=== PATIENT | male | born 1940 | race Caucasian/White ===

== ENCOUNTER → 2017-11-11 06:35 | Outpatient (CLI) | payer MEDICARE, BC, SELFPAY ==
[2017-11-11 07:17] LABS: AST(SGOT) 23 U/L (15-37); Alanine Aminotransfer ALT/SGPT 27 U/L (16-61); Albumin, Serum 3.5 g/dL (3.2-5.0); Alkaline Phosphatase 78 U/L (45-117); Bilirubin, Direct 0.19 mg/dL (0.00-0.30); Cholesterol 167 mg/dL (200); Globulin 3.4 g/dL (2.2-4.2); High Density Lipoprotein 68 mg/dL; Protein, Total 6.9 g/dL (6.4-8.2); Triglycerides 139 mg/dL; Very Low Density Lipoprotein 28 mg/dL (5-40)
== END ==
PROVIDERS: Family Provider Family Medicine; PCP Family Medicine; Referring Provider Internal Medicine Cardiovascular Disease; Visit Provider Internal Medicine Cardiovascular Disease
DX: I25.810 Atherosclerosis of coronary artery bypass graft(s) without angina pectoris (principal); Z95.1 Presence of aortocoronary bypass graft
CPT/HCPCS: 36415; 80061; 80076

== ENCOUNTER → 2017-11-14 06:38 | Outpatient (CLI) | payer MEDICARE, BC, SELFPAY ==
--- NOTE | 2017-11-14 15:27 | STRESSREP ---
Stress Test Report Exercise myocardial perfusion stress test. 77-year-old man with a history of coronary artery bypass surgery. Stress protocol: Resting EKG demonstrates sinus rhythm with a rate of 63 bpm normal intervals and noted resting blood pressure 168/80 6 cm of mercury. The patient exercised according to regular [place] protocol for total duration of 7 minutes and 26 seconds the maximum heart rate attained was 121 bpm. The patient completed 1 minute and 26 seconds into stage III of the Chapin protocol. The maximum workload attained was 9.1 metabolic equivalents at 84% of the maximum predicted heart rate. At rest there were no ST or T wave changes noted suggest ischemia. At peak exercise upsloping ST changes were noted with no meet the criteria for ischemia occasional premature ventricular complex was noted. During recovery there were subtle T wave inversions noted in the inferior lateral leads. No clinical angina was noted the resting blood pressure was 168/86 with a peak blood pressure 178/82. Myocardial perfusion protocol. 11.7 mCi of technetium 99m sestamibi was injected at rest. The patient exercised according to regular [facility] protocol for 7 minutes 26 seconds and at peak exercise 36.0 mCi of technetium 99m sestamibi was injected stress images were obtained stress and rest images were reconstructed and compared in the short axis vertical long horizontal long axis. Gated images were also obtained Perfusion SPECT analysis: Review of the stress images demonstrate normal uptake of tracer noted in all areas of the myocardium. The resting images similarly demonstrate normal uptake of tracer noted in all areas of the myocardium. No areas of reversibility are noted suggest ischemia. Gated SPECT analysis: The gated ejection fraction is noted to be 68%. Conclusion: Normal exercise myocardial perfusion stress test at a high workload. Preserved ejection fraction.
== END ==
PROVIDERS: Family Provider Family Medicine; PCP Family Medicine; Referring Provider Internal Medicine Cardiovascular Disease; Visit Provider Internal Medicine Cardiovascular Disease
DX: Z95.1 Presence of aortocoronary bypass graft (principal)
CPT/HCPCS: 78452; 93017; A9500; A4216

== ENCOUNTER → 2018-11-10 10:20 | Outpatient (CLI) | payer MEDICARE, BC, SELFPAY ==
[2018-11-10 09:54] VITALS: BMI 24.7
[2018-11-10 11:39] LABS: Absolute Lymphocyte Count 1.68 X10^3/uL (0.83-4.51); Absolute Neutrophil Count 4.1 X10^3/uL (2.0-7.7); Basophil# 0.06 X10^3/uL; Basophil% 0.9 % (0-1); Eosinophil# 0.21 X10^3/uL; Eosinophils% 3.1 % (0-5); Hematocrit 52.4 % (40-54); Hemoglobin 16.5 g/dL (13.0-16.5); Lymphocyte # 1.68 X10^3/ul (4.0); Lymphocyte % 24.7 % (19-41); Mean Corp Hgb Conc 31.5 g/dL (32-36); Mean Corpuscular Hgb 28.1 pg (27.0-32.0); Mean Corpuscular Volume 89.3 fL (80-94); Mean Platelet Vol. 10.2 fl (6.2-12.0); Monocyte# 0.71 X10^3/uL; Monocyte% 10.4 % (0-10); NRBC Flagged by Analyzer 0 % (0-5); Neutrophil # 4.13 X10^3/uL (2.7-7.7); Neutrophil % 60.6 % (47-70); Platelet Count 215 K/mm3 (150-450); RBC Distribution Width CV 13.6 % (11.6-14.6); RBC Distribution Width SD 44.6 fl (35.1-43.9); Red Blood Count 5.87 M/mm3 (4.6-6.2); White Blood Count 6.8 K/mm3 (4.4-11.0)
[2018-11-10 12:01] LABS: AST(SGOT) 23 U/L (15-37); Alanine Aminotransfer ALT/SGPT 24 U/L (16-61); Albumin, Serum 3.7 g/dL (3.2-5.0); Alkaline Phosphatase 102 U/L (45-117); Anion Gap 8 (5-15); BUN 14 mg/dL (7-18); BUN/Creat Ratio 16.1 RATIO (10-20); Bilirubin, Direct 0.18 mg/dL (0.00-0.30); Calcium,Total 9.3 mg/dL (8.5-10.1); Chloride 104 mmol/L (98-107); Cholesterol 139 mg/dL (200); Creatinine, Serum 0.87 mg/dL (0.70-1.30); EST Glomerular Filtration Rate 90 mL/min (>60); Est Glom Filt Rate - Afr Amer 109 mL/min (>60); Globulin 3.3 g/dL (2.2-4.2); Glucose 101 mg/dL (74-106); High Density Lipoprotein 70 mg/dL; Potassium 4.2 mmol/L (3.5-5.1); Sodium Level 144 mmol/L (136-145); Triglycerides 99 mg/dL; Very Low Density Lipoprotein 20 mg/dL (5-40)
== END ==
PROVIDERS: Family Provider Family Medicine; PCP Family Medicine; Referring Provider Internal Medicine Cardiovascular Disease; Visit Provider Internal Medicine Cardiovascular Disease
DX: E78.2 Mixed hyperlipidemia (principal); Z95.1 Presence of aortocoronary bypass graft
CPT/HCPCS: 36415; 80048; 80061; 80076; 85025

== ENCOUNTER 2018-11-28 13:48 | Inpatient (IN) | payer MEDICARE, BC, SELFPAY ==
[2018-11-10 09:54] VITALS: BMI 24.7
[2018-11-28] VITALS (23 sets, daily range): BP systolic 127–157; BP diastolic 58–75; PULSE 50–66; RESP 13–20; TEMP 36.6; O2SAT 93–99; BMI 25.4; BMI 23.6; BMI 23.7
--- NOTE | 2018-11-28 13:55 | EKG12_ITS ---
Test Reason : CP Blood Pressure : / mmHG Vent. Rate : 062 BPM Atrial Rate : 062 BPM P-R Int : 192 ms QRS Dur : 098 ms QT Int : 406 ms P-R-T Axes : 071 088 095 degrees QTc Int : 412 ms Normal sinus rhythm ST elevation consider inferior injury or acute infarct ACUTE ME / STEMI Consider right ventricular involvement in acute inferior infarct Abnormal ECG Confirmed by RUBEN MCKEON, JANINE ([id number]), acquisition editor MAURICIO HOFF ([id number]) on 12/04/2018 10:08:45 AM Referred By: Puma Walsh Confirmed By:JANINE MIRANDA MD
--- NOTE | 2018-11-28 13:55 | RAD_ITS ---
STUDY: X-RAY CHEST REASON FOR EXAM: Male, 78 years old. Chest pain TECHNIQUE: Single view of the chest was obtained COMPARISON: None. FINDINGS: No lung consolidation, pleural effusion or pneumothorax. Midline sternotomy wires. Eventration of the right hemidiaphragm. Flattening of the left hemidiaphragm also noted. Osseous structures demonstrate no acute abnormalities. IMPRESSION: No acute cardiopulmonary pathology seen. Electronically Signed: Boubacar Mcgee, at 14:09 EDT Tel , Service support , RAD/Chest 1 View (Portable)
--- NOTE | 2018-11-28 14:01 | ED.DCSUM_ITS ---
History of Present Illness Chief Complaint: Chest Pain Informant: Patient Onset: Days Context: Gradual Onset Timing: Intermittent Current Severity: Moderate Maximum Severity: Moderate Narrative: The patient presents to the emergency department with chest pain. Patient has a history of coronary vascular disease. He did have CABG in 1999. He then had stenting of 1 of his grafts in 2006. He is been having what sounds like stable angina for the past month. He did see Dr. byrd in the office. He was scheduled for an outpatient stress test. He states that today he was walking his dog. He states he began to have substernal heaviness that went into his arms and neck. He also felt mildly short of breath. He states the pain is better but is not resolved. He states this is feels similar to his prior MIs in the past. Prior similar symptoms: Yes Recent Illness/Hospitalization: No Past Medical History - Allergies and Home Meds Allergies/Adverse Reactions: Allergies No Known Allergies Allergy (Unverified 11/28/18 13:58) Primary Care Physician: Isma Haney III, MD [Primary Care Provider] - Prior records reviewed: Yes Past Medical History: - - Hypertension, hyperlipidemia, dementia Surgical History: coronary bypass surgery Lives: With Family Smoking Status: Former smoker Alcohol: None Drugs: None Review of Systems General: Denies: Chills, Fever, Sweats Eyes: Denies: Visual changes - bilaterally, Diplopia ENT: Denies: Rhinorrhea, Sore throat Cardiovascular: Reports: Chest pain. Denies: Palpitations Respiratory: Reports: Dyspnea. Denies: Cough, Dyspnea on exertion Gastrointestinal: Denies: Abdominal pain, Nausea, Vomiting, Diarrhea, Melena, Hematochezia Genitourinary: Denies: Dysuria, Hematuria, Frequency Musculoskeletal: Denies: Back pain, Extremity Pain Skin: Denies: Rash, Wounds Neurological: Denies: Headache, Weakness, Numbness Physical Exam Vital Signs/Narrative: Vital Signs Temp Pulse Resp BP Pulse Ox 11/28/18 13:53 14 156/68 H 11/28/18 13:49 97.8 F 66 16 156/58 H 94 Inital Vital Signs reviewed: Yes General: Well nourished, Well developed, No Acute Distress Head: Normocephalic, Atraumatic Eyes: Perrl, EOMI ENT: Moist mucous membranes, No rhinorrhea Neck: Supple, Nontender Cardiovascular: Regular rate, Regular rhythm, No murmurs Respiratory: No distress, CTA bilaterally, Chest nontender Abdomen: Soft, Nontender, Nondistended, Normal bowel sounds Back: Nontender, Normal Inspection Extremities: Nontender, No edema Skin: Normal color, No rash Neurological: Alert, Oriented x3, Cranial nerves II-XII grossly intact, Normal Strength, Normal Sensation Psychological: Normal affect, Normal Mood Diagnostic/Tx/Re-eval - EKG Initial EKG Interpretation: Sinus Rhythm, S-T Elevation, - - Rate of 62. Inferior ST elevation with lateral depression. Prior: Changed - Medical Decision Making EKG was obtained on patient arrival. It does demonstrate evidence of an acute inferior IL with lateral depression. STEMI team was activated. Patient was given Brilinta and heparin. I did discuss the patient with Dr. Walsh who is actually here evaluating the patient in the emergency department. The plan will be to take patient to the [facility] for definitive intervention. Impression 1. Acute inferior ST elevation myocardial infarction - Critical Care Time Critical care time (excluding procedures): 30-74 minutes ED Disposition - Plan for ED Patient: Referrals: Isma Haney III, MD [Primary Care Provider] -
[2018-11-28] MEDS: Aspirin 81 MG TAB.CHEW 324 MG PO (14:05)
[2018-11-28] MEDS: Heparin Injection (Vial) 5,000 UNIT/ML VIAL 4000 UNIT IV (14:06)
[2018-11-28] MEDS: TICAGRELOR 90 MG TABLET 180 MG PO (14:06)
[2018-11-28 14:17] LABS: Absolute Lymphocyte Count 1.89 X10^3/uL (0.83-4.51); Absolute Neutrophil Count 3.9 X10^3/uL (2.0-7.7); Basophil# 0.08 X10^3/uL; Basophil% 1.2 % (0-1); Eosinophil# 0.11 X10^3/uL; Eosinophils% 1.6 % (0-5); Hematocrit 49.4 % (40-54); Hemoglobin 15.8 g/dL (13.0-16.5); Lymphocyte # 1.89 X10^3/ul (4.0); Lymphocyte % 28.1 % (19-41); Mean Corpuscular Hgb 28.5 pg (27.0-32.0); Monocyte# 0.78 X10^3/uL; Monocyte% 11.6 % (0-10); NRBC Flagged by Analyzer 0 % (0-5); Neutrophil # 3.85 X10^3/uL (2.7-7.7); Neutrophil % 57.4 % (47-70); Platelet Count 222 K/mm3 (150-450); RBC Distribution Width CV 13.6 % (11.6-14.6); RBC Distribution Width SD 44.6 fl (35.1-43.9); Red Blood Count 5.55 M/mm3 (4.6-6.2); White Blood Count 6.7 K/mm3 (4.4-11.0)
--- NOTE | 2018-11-28 14:19 | CM.ED ---
Social Work Consult: Stemi-Alert Met with patient spouse, Trinity in room. Trinity voicing to be aware of current situation and plan. Trinity stating that patient has a diagnosis of Dementia but that patient still drives and does own care. Trinity stating to need to assist patient with high level brain thinking at times. Active listening and support provided. Assisted in escorting Trinity to waiting room. Cuauhtemoc Westbrook MSW, ESTRELLA
[2018-11-28 14:29] LABS: Anion Gap 4 (5-15); BUN 16 mg/dL (7-18); Calcium,Total 9.3 mg/dL (8.5-10.1); Chloride 104 mmol/L (98-107); EST Glomerular Filtration Rate 77 mL/min (>60); Est Glom Filt Rate - Afr Amer 93 mL/min (>60); Estimated Creatinine Clearance 56.92 ml/min; Glucose 129 mg/dL (74-106); Sodium Level 140 mmol/L (136-145)
[2018-11-28 14:37] LABS: International Normalized Ratio 1.1; Prothrombin Time (Protime)PT. 13.6 SECONDS (11.7-14.9)
[2018-11-28 14:38] LABS: Partial Thromboplast Time 29.5 Seconds (24.1-36.2)
--- NOTE | 2018-11-28 16:10 | NURSING ---
Report taken from laboratory clerk WILLIAM Berman.
--- NOTE | 2018-11-28 16:15 | EKG12_ITS ---
Test Reason : SSTEMI Blood Pressure : / mmHG Vent. Rate : 059 BPM Atrial Rate : 059 BPM P-R Int : 198 ms QRS Dur : 096 ms QT Int : 446 ms P-R-T Axes : 065 016 058 degrees QTc Int : 441 ms Sinus bradycardia Inferior infarct , possibly acute * ACUTE PR Consider right ventricular involvement in acute inferior infarct Abnormal ECG Confirmed by LALO MCKEON, ANA ([id number]), technical editor LAURA BUCHANAN ([id number]) on 12/09/2018 10:19:51 AM Referred By: Puma Walsh Confirmed By:ANA MAY MD
--- NOTE | 2018-11-28 16:25 | NURSING ---
Pt to ICU 1 w/WILLIAM Aden from cheesemaking lab[facility]. Groin site checked, benign, sheath intact. Bivalrudin running at 1.75 mg/kg/hr (25.9 ml/hr).
[2018-11-28] MEDS: 0.9% Normal Saline 1,000 ML 150 ML IV (16:30)
--- NOTE | 2018-11-28 17:04 | PCM.HP.STD ---
Problem List (1) Atherosclerotic heart disease of [place] coronary artery without angina pectoris Status: Chronic Qualifiers: [place] vs. transplanted heart: [place] heart Qualified Code(s): I25.10 - Atherosclerotic heart disease of [place] coronary artery without angina pectoris Comment: [id number]-[id number] Cx w/ 2.5 x 16 mm Taxus 11/27/2006 ; CABG x 3: SORENSON-LAD, SVG-RPDA and Left Radial Artery-Cx 11/22/1999 (2) History of coronary artery stent placement Status: Chronic Comment: [id number] Cx w/ 2.5 x 16 mm Taxus 11/27/2006 (3) Essential (primary) hypertension Status: Chronic (4) HLD (hyperlipidemia) Status: Chronic Qualifiers: Hyperlipidemia type: mixed hyperlipidemia Qualified Code(s): E78.2 - Mixed hyperlipidemia (5) STEMI (ST elevation myocardial infarction) Status: Acute Qualifiers: Involved coronary artery: unspecified coronary artery Qualified Code(s): I21.3 - ST elevation (STEMI) myocardial infarction of unspecified site History of Present Illness Date of Admission: 11/28/18 Chief Complaint: Chest pain - 1 day The patient is a 78 year old M with past medical history of CAD status post CABG in 1999, s/p left circumflex GRADY in 2006, hypertension, hyperlipidemia, dementia, who has been having stable angina recently, who comes in with complaints of chest pain, which started while is walking his dog, that radiated to his arms and neck. Associated was shortness of breath. EKG showed ST segment elevation in the inferior leads with lateral depression. A STEMI alert was called. And received heparin and Brilinta. He underwent emergent left heart cath. Findings included EF of 60%, severe inferior hypokinesis, 90% stenosis to the proximal LAD, 100% stenosis to mid LAD, previous stent in left circumflex artery had in-stent 30% restenosis, RCA was occluded, SORENSON graft to the LAD was patent, radial graft to the circumflex was totally occluded, known occlusion, saphenous vein graft to the right PDA was 99% occluded. He received a drug-eluting stent to the right PDA. Distal lesion of right PDA was unable to be stented, balloon angioplasty was done. Vitals in the ICU showed temperature of 90 7.9F, heart rate 52, blood pressure 134/75, respiratory rate of 16, SPO2 is 99% on room air. Admitting blood work was unremarkable. Troponin was 0.226. Past Medical History Past Medical History (Chronic Problems): Chronic Problems (Last Reviewed 11/10/18 @ 10:03 by Brian Samaniego MD) Atherosclerosis of coronary artery bypass graft without angina pectoris (Chronic) [id number]-TDK-Sbjs Cx w/ 2.5 x 16 mm Taxus 11/27/2006 ; CABG x 3: SORENSON-LAD, SVG-RPDA and Left Radial Artery-Cx 11/22/1999 Atherosclerotic heart disease of [place] coronary artery without angina pectoris (Chronic) [id number]-NRZ-Rmdj Cx w/ 2.5 x 16 mm Taxus 11/27/2006 ; CABG x 3: SORENSON-LAD, SVG-RPDA and Left Radial Artery-Cx 11/22/1999 History of coronary artery stent placement (Chronic 11/27/06) QOB-JFA-Uuox Cx w/ 2.5 x 16 mm Taxus 11/27/2006 Essential (primary) hypertension (Chronic) HLD (hyperlipidemia) (Chronic) Claudication (Chronic) Medical History: Medical History (Last Reviewed 11/10/18 @ 10:03 by Brian Samaniego MD) Atherosclerosis of coronary artery bypass graft without angina pectoris (Chronic) I25.810 YPX-NQC-Qdfx Cx w/ 2.5 x 16 mm Taxus 11/27/2006 ; CABG x 3: SORENSON-LAD, SVG-RPDA and Left Radial Artery-Cx 11/22/1999 Atherosclerotic heart disease of [place] coronary artery without angina pectoris (Chronic) I25.10 PMT-UBS-Iwmo Cx w/ 2.5 x 16 mm Taxus 11/27/2006 ; CABG x 3: SORENSON-LAD, SVG-RPDA and Left Radial Artery-Cx 11/22/1999 Essential (primary) hypertension (Chronic) I10 HLD (hyperlipidemia) (Chronic) E78.5 Claudication (Chronic) I73.9 Dementia F03.90 Hypothyroidism E03.9 Carotid bruit R09.89 Allergies No Known Allergies Allergy (Unverified 11/28/18 13:58) Home Medications: Ambulatory Orders Medication Instructions Recorded aspirin 81 mg tablet,delayed 81 mg PO ONCE tab 03/31/17 release donepezil 5 mg tablet 5 mg PO QDAY 03/31/17 levothyroxine 50 mcg capsule 50 mcg PO DAILY 11/06/17 atorvastatin 20 mg tablet 20 mg PO QDAY #90 tab 07/13/18 memantine 10 mg tablet 10 mg PO BID #180 tab 11/10/18 Surgical History: Surgical History (Last Reviewed 11/10/18 @ 10:03 by Brian Samaniego MD) H/O coronary artery bypass surgery (Resolved) Onset Date: 11/22/99 Z95.1 CABG x 3: SORENSON-LAD, SVG-RPDA and Left Radial Artery-Cx 11/22/1999 History of coronary artery stent placement (Chronic) Onset Date: 11/27/06 Z95.5 HGW-DUD-Jmuv Cx w/ 2.5 x 16 mm Taxus 11/27/2006 Surgical History: coronary bypass surgery, - - s/p coronary artery stent placement Psychiatric History: No pertinent psych hx Lives: With Family Smoking Status: Never smoker Alcohol: None Drugs: None - *Family History Maternal Family History: Family History (Last Reviewed 11/10/18 @ 10:03 by Brian Samaniego MD) Father Cancer Mother Arthritis History Items: - - arthritis Paternal Family History: Family History (Last Reviewed 11/10/18 @ 10:03 by Brian Samaniego MD) Father Cancer Mother Arthritis History Items: Cancer Review of Systems Constitutional: Denies: Anorexia, Chills, Fever, Night Sweats, Malaise, Weakness, Weight Change Eyes: Denies: Blurred vision, Cataracts, Conjunctivae Inflammation, Pain, Redness, Vision Change HEENT: Denies: Difficulty Hearing, Difficulty Swallowing, Head Aches, Hearing Changes, Sinus Congestion, Sinus Drainage Cardiovascular: Reports: Chest Pain, Light Headedness. Denies: Claudication, Chest Pressure, Orthopnea, Palpitations, Paroxysmal Noc. Dyspnea Respiratory: Denies: Cough, Hemoptysis, Shortness of breath at rest, Shortness of breath upon exertion, Sputum production Gastrointestinal: Denies: Abdominal Pain, Hematemesis, Hematochezia, Nausea, Vomiting Genitourinary: Denies: Dysuria Musculoskeletal: Denies: Joint Pain, Joint Tenderness Skin: Denies: Rash, Wounds Neurological: Denies: Numbness, Tingling, Focal weakness Psychiatric: Denies: Anxiety, Depression, Homicidal Ideations, Suicidal Ideations Hematologic/ Lymphatic: Denies: Easy Bruising, Easy Bleeding VTE Information - Inpt Only VTE Present on Admission: No VTE Pharm Prophylaxis ordered?: Yes Patient Problems: Active and Suspected Problems (Last Reviewed 11/10/18 @ 10:03 by Brian Samaniego MD) STEMI (ST elevation myocardial infarction) (Acute) - Physical Exam General: Alert, Oriented x3, Cooperative HEENT: Atraumatic, PERRLA, EOMI, Normocephalic Oral: Moist Mucosa Neck: Supple, Negative Carotid Bruits Lungs: Clear to auscultation, Normal air movement Cardiovascular: Regular rate, No murmurs Abdomen: Bowel Sounds Present, Soft, Non Tender Extremities: No edema, Capillary Refill Less than 3 Seconds Skin: No rashes, No breakdown Musculoskeletal: No Tenderness to Palpation of Joints or Extremities Neurological: Cranial nerves II-XII grossly intact Psych/Mental Status: Normal Affect, Appropriate Vital Signs Temp Pulse Resp BP Pulse Ox 97.8 F 57 L 20 H 157/74 H 94 11/28/18 13:49 11/28/18 14:07 11/28/18 14:07 11/28/18 14:07 11/28/18 14:07 Oxygen Flow Rate (L/min) 2 Oxygen Delivery Method Nasal Cannula Weight: 73.7 kg Body Mass Index (BMI) 25.4 Laboratory Tests Past 24 Hrs 11/28/18 11/28/18 11/28/18 13:56 13:56 13:56 WBC 6.7 RBC 5.55 Hgb 15.8 Hct 49.4 MCV 89.0 MCH 28.5 MCHC 32.0 RDW Std Deviation 44.6 H RDW Coeff of Jose G 13.6 Plt Count 222 MPV 10.0 Immature Gran % (Auto) 0.100 Neut % (Auto) 57.4 Lymph % (Auto) 28.1 [place] % (Auto) 11.6 H Eos % (Auto) 1.6 Baso % (Auto) 1.2 H Absolute Neuts (auto) 3.9 Absolute Lymphs (auto) 1.89 Nucleated RBC % 0 PT 13.6 INR 1.1 APTT 29.5 Sodium 140 Potassium 4.0 Chloride 104 Carbon Dioxide 32.0 Anion Gap 4 L BUN 16 Creatinine 1.00 Estim Creat Clear Calc 56.92 Est GFR (MDRD) Af Amer 93 Est GFR (MDRD) Non-Af 77 BUN/Creatinine Ratio 16.0 Glucose 129 H Calcium 9.3 Troponin I 0.226 H Assessment/Plan All Active Problems (Last Reviewed 11/10/18 @ 10:03 by Brian Samaniego MD) STEMI (ST elevation myocardial infarction) (Acute) H/O coronary artery bypass surgery (Resolved 11/22/99) 78 year old M with past medical history of CAD status post CABG in 2017, hypertension, hyperlipidemia, dementia, who has been having stable angina recently, who comes in with complaints of chest pain, which started while is walking his dog, that radiated to his arms and neck. 1. Acute inferior STEMI, AZEB score 5, Status post emergent cardiac cath with drug-eluting stent and PTCA to the proximal SVG graft to PDA History of CABG in 1999, history of GRADY in 2006 Admitted to ICU post cardiac cath We will follow post-cath orders, On aspirin, Brilinta, statins, metoprolol Lipid profile and HbA1c in a.m. 2. Hypertension, controlled, on metoprolol Will continue to monitor. 3. Hyperlipidemia, on statins, HbA1c in a.m. 4. Hypothyroidism, continue on Synthroid 5. Dementia -patient was on Aricept and Namenda at home We will hold these medications for now May resume meds if there is no bradycardia 6. DVT PPx- SCDs Code Visit Inpatient E&M: 39999 Init Hosp L3
--- NOTE | 2018-11-28 17:50 | NURSING ---
Bivalrudin GTT ended.
--- NOTE | 2018-11-28 21:56 | NURSING ---
2125 Right Femoral arterial sheath pulled by Vinny Tomas RN. Sterile procedure observed, this RN on standby for procedure. Manual pressure applied at 2125. Manual pressure released at 2155 and dressing applied. No complications noted.
[2018-11-28] MEDS: Atorvastatin Calcium 80 MG Tablet PO (23:22)
[2018-11-28] MEDS: TICAGRELOR 90 MG TABLET PO (23:23)
[2018-11-29] VITALS (20 sets, daily range): BP systolic 95–138; BP diastolic 55–75; PULSE 52–70; RESP 12–19; TEMP 36.7–36.9; O2SAT 94–100
[2018-11-29] MEDS: Acetaminophen 325 MG Tablet 650 MG PO (03:54)
[2018-11-29 04:10] LABS: Hematocrit 44.5 % (40-54); Hemoglobin 14.6 g/dL (13.0-16.5); Mean Corpuscular Hgb 28.9 pg (27.0-32.0); Mean Corpuscular Volume 88.1 fL (80-94); Red Blood Count 5.05 M/mm3 (4.6-6.2); White Blood Count 10.1 K/mm3 (4.4-11.0)
[2018-11-29 04:11] LABS: Mean Corp Hgb Conc 32.8 g/dL (32-36); Mean Platelet Vol. 10.1 fl (6.2-12.0); Platelet Count 174 K/mm3 (150-450); RBC Distribution Width CV 13.8 % (11.6-14.6); RBC Distribution Width SD 44.5 fl (35.1-43.9)
[2018-11-29 04:45] LABS: ALB/GLOB Ratio 1.1 RATIO (0.9-2.4); AST(SGOT) 74 U/L (15-37); Alanine Aminotransfer ALT/SGPT 26 U/L (16-61); Alkaline Phosphatase 76 U/L (45-117); Anion Gap 6 (5-15); BUN 12 mg/dL (7-18); BUN/Creat Ratio 17.2 RATIO (10-20); Calcium,Total 8.3 mg/dL (8.5-10.1); Chloride 108 mmol/L (98-107); Cholesterol 118 mg/dL (200); EST Glomerular Filtration Rate 116 mL/min (>60); Est Glom Filt Rate - Afr Amer 140 mL/min (>60); Estimated Creatinine Clearance 62.86 ml/min; Globulin 2.7 g/dL (2.2-4.2); Glucose 112 mg/dL (74-106); High Density Lipoprotein 61 mg/dL; Potassium 4.2 mmol/L (3.5-5.1); Protein, Total 5.7 g/dL (6.4-8.2); Sodium Level 139 mmol/L (136-145); Triglycerides 67 mg/dL; Very Low Density Lipoprotein 13 mg/dL (5-40)
[2018-11-29] MEDS: Levothyroxine 50 MCG Tablet PO (06:05)
[2018-11-29] MEDS: TICAGRELOR 90 MG TABLET PO ×2 (08:52→22:03)
[2018-11-29] MEDS: Aspirin E.C. 81 MG Tablet PO (08:52)
--- NOTE | 2018-11-29 09:13 | PCM.PN.CARD ---
Subjectve: No significant events overnight. Reports no chest pain or shortness of breath. Complains of some upper back pain, which is positional. Troponins are expectedly elevated. Objective: Vital Signs Temp Pulse Resp BP Pulse Ox 98.1 F 69 15 128/61 H 98 11/29/18 08:00 11/29/18 09:09 11/29/18 09:00 11/29/18 09:00 11/29/18 09:00 Oxygen Flow Rate (L/min) 2 Oxygen Delivery Method Room Air Weight: 74.6 kg Body Mass Index (BMI) 23.6 Intake and Output for Last 24 Hours 11/27/18 11/28/18 11/29/18 23:59 23:59 23:59 Intake Total 1000 / 1000 Output Total 1200 / 1900 1300 / 1300 Balance -200 / -900 -1300 / -1300 General: Awake, Alert, Oriented x 3 HEENT: PERRL, EOMI, Sclera Non Icteric Neck: Supple, Good ROM, No Lymph Node Enlargement Lungs: Clear to auscultation Cardiovascular: Regular Rhythm, Normal S1, Normal S2, No Murmurs, No Rubs, No Gallops Vascular: No Carotid Bruits, Normal Femoral Pulses, Normal Radial Pulses, Normal Dorsalis Pedal Pulse, Normal Posterior Tibial Pulses Abdomen: Bowel Sounds Present, Soft, Non Tender, No HSM, No Organomegaly Extremities: No Cyanosis, No Clubbing, No edema Neurological: No Focal Motor or Sensory Deficit 11/28/18 13:56: WBC 6.7, RBC 5.55, Hgb 15.8, Hct 49.4, MCV 89.0, MCH 28.5, MCHC 32.0, Plt Count 222, MPV 10.0, Immature Gran % (Auto) 0.100, Neut % (Auto) 57.4, Lymph % (Auto) 28.1, [place] % (Auto) 11.6 H, Eos % (Auto) 1.6, Baso % (Auto) 1.2 H, Absolute Neuts (auto) 3.9, Nucleated RBC % 0 11/28/18 13:56: PT 13.6, INR 1.1, APTT 29.5 11/28/18 13:56: Sodium 140, Potassium 4.0, Chloride 104, Carbon Dioxide 32.0, Anion Gap 4 L, BUN 16, Creatinine 1.00, Est GFR (MDRD) Af Amer 93, Est GFR (MDRD) Non-Af 77, BUN/Creatinine Ratio 16.0, Glucose 129 H, Calcium 9.3, Troponin I 0.226 H 11/28/18 18:05: Troponin I 4.490 H* 11/28/18 21:00: Troponin I 11.000 H* 11/29/18 00:15: Troponin I 14.500 H* 11/29/18 04:00: WBC 10.1, RBC 5.05, Hgb 14.6, Hct 44.5, MCV 88.1, MCH 28.9, MCHC 32.8, Plt Count 174, MPV 10.1 11/29/18 04:00: Sodium 139, Potassium 4.2, Chloride 108 H, Carbon Dioxide 25.0, Anion Gap 6, BUN 12, Creatinine 0.70, Est GFR (MDRD) Af Amer 140, Est GFR (MDRD) Non-Af 116, BUN/Creatinine Ratio 17.2, Glucose 112 H, Calcium 8.3 L, Total Bilirubin 0.90, Triglycerides 67, Cholesterol 118, LDL Cholesterol 44, VLDL Cholesterol 13, HDL Cholesterol 61 Rhythm: EKG: ECHO: Stress Test: Cardiac Cath: PCI: CT Surgery: Holter monitor: EPS: PPM: CXR: Chest CT Scan: Medical Necessity - Tobacco Use Smoking Status: Never smoker Assessment/Plan 1. Acute inferior ST elevation myocardial infarction, status post PCI to the proximal part of the SVG to PDA, balloon angioplasty of the distal segment of the SVG, technically complex, due to extensive fibrosis and angulation of the segment. The patient is doing well clinically. He is totally asymptomatic. Troponins are expectedly elevated. Continue guideline recommended medical therapy. Due to some bradycardia yesterday, would hold beta-blockers dose. Consider attempting intervention with stent placement to the distal SVG part versus continuation of ongoing medical management with antianginals. The patient may be transferred out from the ICU 2. Mild dementia. If no events, with anticipated discharge tomorrow after discussion with Dr. Samaniego, his primary iso coordinator. Code Visit Inpatient E&M: 89063 Subs Hosp L2
--- NOTE | 2018-11-29 09:59 | PCM.PN.HOSP ---
Patient Problems: Active and Suspected Problems (Last Reviewed 11/10/18 @ 10:03 by Brian Samaniego MD) STEMI (ST elevation myocardial infarction) (Acute) Subjective: Feeling much better, his chest pain has essentially resolved though he does have some residual soreness over his left chest. Also has some back pain which is likely due to the mattress. Vitals/I&O's: Vital Signs Temp Pulse Resp BP Pulse Ox 98.1 F 69 15 128/61 H 98 11/29/18 08:00 11/29/18 09:09 11/29/18 09:00 11/29/18 09:00 11/29/18 09:00 Oxygen Flow Rate (L/min) 2 Oxygen Delivery Method Room Air Weight: 164 lb 7.437 oz Body Mass Index (BMI) 23.6 Intake and Output for Last 24 Hours 11/27/18 11/28/18 11/29/18 23:59 23:59 23:59 Intake Total 1000 / 1000 Output Total 1200 / 1900 1300 / 1300 Balance -200 / -900 -1300 / -1300 General: Alert, Oriented x3, Cooperative, No apparent distress HEENT: Atraumatic, PERRLA, EOMI, Normocephalic Oral: Moist Mucosa Neck: Supple, No JVD Lungs: Clear to auscultation, Normal air movement, No rhonchi, No wheeze, No rales Cardiovascular: Regular rate, Regular Rhythm, Normal S1, Normal S2, No murmurs Abdomen: Soft, Non Tender, Non-Distended, No Hepato-splenomegaly Extremities: No edema, Capillary Refill Less than 3 Seconds Skin: No rashes, No breakdown, Incision - Cath site CDI Neurological: Neuro grossly intact, Sensory exam intact to light touch and pain Psych/Mental Status: Normal Affect, Appropriate Laboratory Results 11/28/18 13:56: WBC 6.7, RBC 5.55, Hgb 15.8, Hct 49.4, MCV 89.0, MCH 28.5, MCHC 32.0, RDW Std Deviation 44.6 H, RDW Coeff of Jose G 13.6, Plt Count 222, MPV 10.0, Immature Gran % (Auto) 0.100, Neut % (Auto) 57.4, Lymph % (Auto) 28.1, Door % (Auto) 11.6 H, Eos % (Auto) 1.6, Baso % (Auto) 1.2 H, Absolute Neuts (auto) 3.9, Absolute Lymphs (auto) 1.89, Nucleated RBC % 0 11/28/18 13:56: PT 13.6, INR 1.1, APTT 29.5 11/28/18 13:56: Sodium 140, Potassium 4.0, Chloride 104, Carbon Dioxide 32.0, Anion Gap 4 L, BUN 16, Creatinine 1.00, Estim Creat Clear Calc 56.92, Est GFR (MDRD) Af Amer 93, Est GFR (MDRD) Non-Af 77, BUN/Creatinine Ratio 16.0, Glucose 129 H, Calcium 9.3, Troponin I 0.226 H 11/28/18 18:05: Troponin I 4.490 H* 11/28/18 21:00: Troponin I 11.000 H* 11/29/18 00:15: Troponin I 14.500 H* 11/29/18 04:00: WBC 10.1, RBC 5.05, Hgb 14.6, Hct 44.5, MCV 88.1, MCH 28.9, MCHC 32.8, RDW Std Deviation 44.5 H, RDW Coeff of Jose G 13.8, Plt Count 174, MPV 10.1 11/29/18 04:00: Sodium 139, Potassium 4.2, Chloride 108 H, Carbon Dioxide 25.0, Anion Gap 6, BUN 12, Creatinine 0.70, Estim Creat Clear Calc 62.86, Est GFR (MDRD) Af Amer 140, Est GFR (MDRD) Non-Af 116, BUN/Creatinine Ratio 17.2, Glucose 112 H, Calcium 8.3 L, Total Bilirubin 0.90, AST 74 H, ALT 26, Alkaline Phosphatase 76, Total Protein 5.7 L, Albumin 3.0 L, Globulin 2.7, Albumin/Globulin Ratio 1.1, Triglycerides 67, Cholesterol 118, LDL Cholesterol 44, VLDL Cholesterol 13, HDL Cholesterol 61 Current Medications Acetaminophen (Tylenol) 650 mg PO Q6H PRN PRN PRN Reason: Pain Score 1-3/Temp > 100.7 F Last Admin: 11/29/18 03:54 Dose: 650 mg Documented by: Aspirin (Ecotrin) 81 mg PO DAILY@0800 [facility] Last Admin: 11/29/18 08:52 Dose: 81 mg Documented by: Atorvastatin Calcium (Lipitor) 80 mg PO QHS [facility] Last Admin: 11/28/18 23:22 Dose: 80 mg Documented by: Atropine Sulfate () 0.5 mg IV UD PRN PRN Reason: HR <50 bpm Sodium Chloride () 250 mls @ 15 mls/hr IV .[id number] PRN PRN Reason: Saline Flush Labetalol HCl (Trandate) 5 mg IV X1 PRN PRN Reason: SBP > 160 when pulling sheath Stop: 11/30/18 16:09 Levothyroxine Sodium (Synthroid) 50 mcg PO DAILY@0600 [facility] Last Admin: 11/29/18 06:05 Dose: 50 mcg Documented by: Metoprolol Tartrate (Lopressor (Beta Natalie)) 12.5 mg PO BID [facility] Last Admin: 11/29/18 09:09 Dose: Not Given Documented by: Ondansetron HCl (Zofran) 4 mg IV Q8H PRN PRN PRN Reason: NAUSEA/VOMITING Sodium Chloride () 500 ml IV BOLUS PRN PRN Reason: VASO-VAGAL PROTOCOL Sodium Chloride () 5 - 15 ml IV UD PRN PRN Reason: SALINE FLUSH Ticagrelor (Brilinta) 90 mg PO BID [facility] Last Admin: 11/29/18 08:52 Dose: 90 mg Documented by: STROKE Vital Signs/Narrative: Vital Signs Temp Pulse Resp BP Pulse Ox 11/29/18 09:09 69 11/29/18 09:00 64 15 128/61 H 98 11/29/18 08:00 98.1 F 52 L 17 108/75 99 11/29/18 07:37 54 L 11/29/18 07:00 52 L 17 127/61 H 97 11/29/18 06:51 97 11/29/18 06:00 53 L 17 120/75 95 Medical Necessity - Tobacco Use Smoking Status: Never smoker Assessment/Plan All Active Problems (Last Reviewed 11/10/18 @ 10:03 by Brian Samaniego MD) STEMI (ST elevation myocardial infarction) (Acute) H/O coronary artery bypass surgery (Resolved 11/22/99) 1. Acute inferior STEMI/HTN/HLD/CAD status post CABG 2017 -On admission his AZEB score was a 5, he had a GRADY placed to the proximal SVG graft to PDA -Appreciate cardiology assistance -Continue with aspirin, Brilinta, statins -Her rate has been slow today so we will hold his metoprolol -LDL is 44 2. Hypothyroidism -Stable -Continue with home Synthroid 3. Dementia -Mild, stable -Hold donepezil and memantine while bradycardic DVT: SCDs Code Visit Inpatient E&M: 26143 Subs Hosp L2
--- NOTE | 2018-11-29 10:00 | EKG12_ITS ---
Test Reason : AM Blood Pressure : / mmHG Vent. Rate : 056 BPM Atrial Rate : 056 BPM P-R Int : 182 ms QRS Dur : 088 ms QT Int : 412 ms P-R-T Axes : 066 -10 064 degrees QTc Int : 397 ms Sinus bradycardia Inferior infarct , age undetermined Nonspecific ST/T Wave Abnormality Abnormal ECG Confirmed by LALO MCKEON, ANA ([id number]), editor school photograph LAURA BUCHANAN ([id number]) on 12/09/2018 10:19:31 AM Referred By: Puma Walsh Confirmed By:ANA MAY MD
--- NOTE | 2018-11-29 11:11 | NURSING ---
Pt given all medication teaching as well as chest pain and PCI literature. Discussed w/ pt but d/t baseline dementia, will address with significant other or other family when they arrive.
--- NOTE | 2018-11-29 12:46 | NURSING ---
Pt's daughter, Mona Krishnan, voicing concerns at this time about pt's safety going home at discharge. Mona relays to this RN that pt's has been drinking and falling frequently and believes she is not fit to care for pt at home in addition to the pt's baseline dementia. This RN explained that social work would be contacted to talk about options going forward. Voicemail left with Lana Kimball and Maya Mcnulty regarding situation. Mona can be contacted at .
[2018-11-29] MEDS: Atorvastatin Calcium 80 MG Tablet PO (22:03)
[2018-11-29] MEDS: Metoprolol Tartrate 25 MG Tablet 12.5 MG PO (22:03)
[2018-11-30] VITALS (11 sets, daily range): BP systolic 97–130; BP diastolic 50–71; PULSE 52–71; RESP 18–22; TEMP 36.6–36.9; O2SAT 97–98
[2018-11-30] MEDS: Levothyroxine 50 MCG Tablet PO (06:02)
--- NOTE | 2018-11-30 07:39 | PN.CARD_ITS ---
Subjectve: Patient seen and evaluated and doing well. Objective: Vital Signs Temp Pulse Resp BP Pulse Ox 98.4 F 66 22 H 127/71 H 97 11/30/18 06:00 11/30/18 06:00 11/30/18 06:00 11/30/18 06:00 11/30/18 06:48 Oxygen Flow Rate (L/min) 2 Oxygen Delivery Method Room Air Weight: 164 lb 7.437 oz Body Mass Index (BMI) 23.6 Intake and Output for Last 24 Hours 11/28/18 11/29/18 11/30/18 23:59 23:59 23:59 Intake Total 1000 / 1000 300 / 300 Output Total 1200 / 1900 1300 / 1700 900 / 900 Balance -200 / -900 -1300 / -1700 -600 / -600 General: Awake, Alert, Oriented x 3 HEENT: PERRL, EOMI, Sclera Non Icteric Neck: Supple, Good ROM, No Lymph Node Enlargement Lungs: Clear to auscultation Cardiovascular: Regular Rhythm, Normal S1, Normal S2, No Murmurs, No Rubs, No Gallops Vascular: No Carotid Bruits, Normal Femoral Pulses, Normal Radial Pulses, Normal Dorsalis Pedal Pulse, Normal Posterior Tibial Pulses Abdomen: Bowel Sounds Present, Soft, Non Tender, No HSM, No Organomegaly Extremities: No Cyanosis, No Clubbing, No edema Musculoskeletal: No Erythema Skin: No Rashes Lymphatic: No Lymph Node Enlargement Neurological: No Focal Motor or Sensory Deficit Psych/Mental Status: Appropriate Rhythm: EKG: ECHO: Stress Test: Cardiac Cath: PCI: CT Surgery: Holter monitor: EPS: PPM: CXR: Chest CT Scan: Medical Necessity - Tobacco Use Smoking Status: Never smoker Assessment/Plan 1. Status post acute inferior wall myocardial infarction * The patient underwent angioplasty and stenting of the saphenous vein graft to the right coronary artery proximally and distally. Appears to be doing well at this time with no chest pain or shortness of breath * Plan is to continue the current medical therapy with no major changes. He does have residual disease noted in the [place] right coronary artery as well as the circumflex artery. * At this time I will prefer medical therapy and after he is seen in the office further recommendations will be made. * Plans will need to be made regarding his care due to his dementia. * Continue high intensity statin * Continue antiplatelet agents. * * Stable from the cardiovascular standpoint for outpatient discharge.
--- NOTE | 2018-11-30 08:25 | CRPHASE1_ITS ---
Patient Communication Former Patient:: Phase II PHII Cardiac Rehab Discussed with Patient:: Yes Guide to Cardiac Rehab Given to Patient:: Yes Cardiac Rehab Facility Choice List Given to Patient:: Yes Choice Program [facility] PHII:: Communication Given to CR, Refer to [facility] Choice Program Other:: Communication Given to CR, With permission faxed order and referral information Assistant Front Desk Manager:: Puma Walsh Refer Phase II Cardiac Rehab:: Yes Sessions:: 36 sessions - 3 days/wk, 12 weeks Risk Factors/Lifestyle Smoking Status: Never smoker Hx Hypertension: Yes - ESSENTIAL Hx Diabetes Mellitus Type 1: No Hx Diabetes Mellitus Type 2: No Hx Metabolic Disorders: No Hx Dyslipidemia: Yes Hx Obesity: No Height: 5 ft 7 in - BMI 23.6 Stress: Home/Family Risk Factor for Sedentary Lifestyle: Moderate Risk Family History: Family History (Last Reviewed 11/10/18 @ 10:03 by Brian Samaniego MD) Father Cancer Mother Arthritis Family History: Dementia, Heart Disease, Hypertension Past Cardiac Illness: Coronary Artery Disease, Previous PCI w/Stent, Coronary Artery Bypass Graft Laboratory Values: Cardiac Rehab Phase I Labs Triglycerides 67 mg/dL (-199) 11/29/18 04:00 Cholesterol 118 mg/dL (200) 11/29/18 04:00 LDL Cholesterol 44 mg/dL (0-130) 11/29/18 04:00 HDL Cholesterol 61 mg/dL (40-) 11/29/18 04:00 Phase I Education Given On:: [place], Nutrition, Antiplatelet medication Issues Affecting Care:: None Knowledge of Condition:: Yes Learning Preferences: Verbal, Written Hospital Course Presenting Symptoms:: STEMI Medical/Surgical History OK:: Yes - STEMI CAD:: Yes Cardiomyopathy:: No Pulmonary:: No Diabetes:: No Hypertension:: Yes - ESSENTIAL Dyslipidemia:: Yes Thyroid:: Yes - HYPOTHYROIDISM Depression:: No CABG: Yes PTCA:: Yes - CABG 1999, PCI 2006 Discharge/Home/Social Eval Discharge Disposition: Home Cardiac Rehabilitation Info Cardiac Rehabilitation Program Information: Cardiac Rehabilitation is important for patients like you who are recovering from a heart problem. Cardiac rehabilitation programs are recognized as integral to the continued care of the patient with coronary heart disease. The cardiac rehabilitation program is designed to optimize a patient's physical, psychological, and social functioning. Health hospice care sales consultant work in cardiac rehabilitation programs and assist you with getting the treatments you need to get stronger and healthier - like exercise, healthy eating habits, and medications. Cardiac rehabilitation has been show to help people with heart problems live longer and have better life enjoyment than people who do not go to cardiac rehabilitation. Please contact the Cardiac Rehabilitation Program at [facility] at in two weeks if you have not heard from them.
--- NOTE | 2018-11-30 08:29 | CRPH1.INSTRU ---
General Education CAD and cardiac anatomy and function:: Patient communicates acknowledgment Explanation of diagnoses and procedures:: Patient communicates acknowledgment Sign/Symptoms of DE:: Patient communicates acknowledgment Antiplatelet therapy: Patient communicates acknowledgment Proper use of NTG-SL: Not instructed Emergency procedures and activation of EMS: Patient communicates acknowledgment Compliance of all prescribed medications: Patient communicates acknowledgment Smoking Patient Nicotine/Smoking Risk Factors Are:: Never smoked Dyslipidemia Patient Dyslipidemia Risk Factors Are:: Total Cholesterol, Triglycerides, HDL, LDL Recommendations Include:: Lipid profile provided, Reviewed NCEP/ATP guidelines, Therapeutic Lifestyle Change dietary guidelines Dyslipidemia Response Code:: Patient communicates acknowledgment Overweight/Obesity Patient Overweight/Obesity Risk Factors Are:: BMI Normal [24-29 & > 65 years old] Hypertension Recommendations Include:: Maintain BP <130/85, DASH dietary guidelines, Decrease/maintain normal body weight, Moderation of ETOH Hypertension:: Patient communicates acknowledgment Heart Disease Patient Heart Disease Risk Factors Are:: Previous cardiac event Heart Disease Response Code:: Patient communicates acknowledgment Diabetes Patient Diabetes Risk Factors Are:: No documented hx of diabetes Metabolic Syndrome Recommendations Include:: Does not meet criteria Sedentary Patient Sedentary Risk Factors Are:: Lack of regular exercise Recommendations Include:: Aerobic exercise 5-7 times/week for 20-30 minutes continuously, Benefits of regular exercise, Discussed home walking program, Monitored Outpatient Cardiac Rehab Sedentary Response Code:: Patient communicates acknowledgment Stress Recommendations Include:: Identification of stressors, and assessment of coping skills, Stress management techniques Stress Response Code:: Patient communicates acknowledgment
[2018-11-30] MEDS: Metoprolol Tartrate 25 MG Tablet 12.5 MG PO (08:41)
[2018-11-30] MEDS: Aspirin E.C. 81 MG Tablet PO (08:41)
[2018-11-30] MEDS: TICAGRELOR 90 MG TABLET PO (08:43)
--- NOTE | 2018-11-30 10:00 | EKG12_ITS ---
Test Reason : MORNING EKG Blood Pressure : / mmHG Vent. Rate : 060 BPM Atrial Rate : 060 BPM P-R Int : 186 ms QRS Dur : 094 ms QT Int : 436 ms P-R-T Axes : 058 -16 -44 degrees QTc Int : 436 ms Normal sinus rhythm Inferior infarct , age undetermined Abnormal ECG Confirmed by LALO MCKEON, ANA ([id number]), assignment editor LAURA BUCHANAN ([id number]) on 12/09/2018 10:19:10 AM Referred By: Puma Walsh Confirmed By:ANA MAY MD
--- NOTE | 2018-11-30 10:40 | DCINST_ITS ---
- Discharge Diagnoses Current Active Problems: Current Active and Chronic Problems (Last Reviewed 11/10/18 @ 10:03 by Brian Samaniego MD) STEMI (ST elevation myocardial infarction) (Acute) You will use the following diet at home:: Cardiac Discharge Activity: Return to Normal Activity Allergies/Adverse Reactions: Allergies No Known Allergies Allergy (Unverified 11/28/18 13:58) Medications to take at Discharge donepezil 5 mg tablet 5 mg PO QDAY 03/31/17 levothyroxine 50 mcg capsule 50 mcg PO DAILY 11/06/17 memantine 10 mg tablet 10 mg PO BID #180 tab 11/10/18 Aspirin E.C. [Ecotrin] 81 mg PO DAILY@0800 #90 tab 11/30/18 Atorvastatin Calcium [Lipitor] 40 mg PO QHS #90 tab 11/30/18 Metoprolol Tartrate [Lopressor (beta marialuisa)] 12.5 mg PO BID #90 tab 11/30/18 Ticagrelor [Brilinta] 90 mg PO BID #180 tab 11/30/18 The following prescriptions were given: Ticagrelor [Brilinta] 90 mg PO BID #180 tab Transmission Status: Received by [id number] Aspirin E.C. [Ecotrin] 81 mg PO DAILY@0800 #90 tab Transmission Status: Received by [id number] Atorvastatin Calcium [Lipitor] 40 mg PO QHS #90 tab Transmission Status: Received by [id number] Metoprolol Tartrate [Lopressor (beta marialuisa)] 12.5 mg PO BID #90 tab Transmission Status: Received by [id number] Primary Care Physician: Isma Haney III, MD [Primary Care Provider] - Please follow up with your Primary Care Physician in: in 5-7 days Test Results: Test results from this visit will be discussed in further detail at your follow- up appointment, if applicable. Please Follow Up With: Brian Samaniego MD When: as scheduled Proposed Discharge Date: 11/30/18
--- NOTE | 2018-11-30 10:42 | PCM.DC.SUM ---
Discharge Date and Diagnosis - Problem List Patient Problems: Active and Suspected Problems (Last Reviewed 11/10/18 @ 10:03 by Brian Samaniego MD) STEMI (ST elevation myocardial infarction) (Acute) Date of Admission: 11/28/18 Date of Discharge: 11/30/18 - Primary Discharge Diagnosis Active and Suspected Problems (Last Reviewed 11/10/18 @ 10:03 by Brian Samaniego MD) STEMI (ST elevation myocardial infarction) (Acute) - Secondary Discharge Diagnosis Chronic Problems (Last Reviewed 11/10/18 @ 10:03 by Brian Samaniego MD) Atherosclerosis of coronary artery bypass graft without angina pectoris (Chronic) [id number] Cx w/ 2.5 x 16 mm Taxus 11/27/2006 ; CABG x 3: SORENSON-LAD, SVG-RPDA and Left Radial Artery-Cx 11/22/1999 Atherosclerotic heart disease of [place] coronary artery without angina pectoris (Chronic) [id number] Cx w/ 2.5 x 16 mm Taxus 11/27/2006 ; CABG x 3: SORENSON-LAD, SVG-RPDA and Left Radial Artery-Cx 11/22/1999 History of coronary artery stent placement (Chronic 11/27/06) [id number] Cx w/ 2.5 x 16 mm Taxus 11/27/2006 Essential (primary) hypertension (Chronic) HLD (hyperlipidemia) (Chronic) Claudication (Chronic) Hospital Course and Treatment Imaging Results: Clinical Impression(s) from Imaging Studies Chest X-Ray 11/28/18 13:55 Summary of Care Provided: The patient is a 78 year old M admitted with chest pain. An assessment of acute ST segment elevation NH involving the inferior wall was made. Patient to drip per protocol. Underwent left heart catheterization with angioplasty and stenting of the saphenous vein graft to the right coronary artery proximally and distally. Subsequently monitored in the ICU where patient did remain stable. Hypothyroidism ~patient is on levothyroxine home dose continued Dyslipidemia ~patient is on statin therapy, continued Hypertension ~ blood pressure controlled, home medications continued with dose adjustment as needed Dementia ?On Aricept and Namenda resumed on discharge Patient Problems: Active and Suspected Problems (Last Reviewed 11/10/18 @ 10:03 by Brian Samaniego MD) STEMI (ST elevation myocardial infarction) (Acute) Objective: GENERAL: cooperative HEENT: Atraumatic; EYES; Anicteric, NECK; supple, normal thyroid, RESPIRATORY: Diminished to auscultation CARDIOVASCULAR: Regular S1 S2, GI: soft, non-tender, normoactive bowel sounds, : No Renal angle tenderness; NEURO: Awake; no lateralizing signs. SKIN: No Rash PSYCH; Normal affect - Physical Exam Vital Signs Temp Pulse Resp BP Pulse Ox 98.4 F 64 20 H 102/66 97 11/30/18 06:00 11/30/18 10:00 11/30/18 10:00 11/30/18 10:00 11/30/18 10:00 Oxygen Flow Rate (L/min) 2 Oxygen Delivery Method Room Air Weight: 74.6 kg Body Mass Index (BMI) 23.6 Intake and Output for Last 24 Hours 11/28/18 11/29/18 11/30/18 23:59 23:59 23:59 Intake Total 1000 / 1000 300 / 300 Output Total 1200 / 1900 1300 / 1700 900 / 900 Balance -200 / -900 -1300 / -1700 -600 / -600 Discharge Diet: Low fat/ Low Cholesterol Discharge Activity: Return to Normal Activity Home Medications: Medications to take at Discharge donepezil 5 mg tablet 5 mg PO QDAY 03/31/17 levothyroxine 50 mcg capsule 50 mcg PO DAILY 11/06/17 memantine 10 mg tablet 10 mg PO BID #180 tab 11/10/18 Aspirin E.C. [Ecotrin] 81 mg PO DAILY@0800 #90 tab 11/30/18 Atorvastatin Calcium [Lipitor] 40 mg PO QHS #90 tab 11/30/18 Metoprolol Tartrate [Lopressor (beta natalie)] 12.5 mg PO BID #90 tab 11/30/18 Ticagrelor [Brilinta] 90 mg PO BID #180 tab 11/30/18 Following Prescrptions Were Given to Patient: Ticagrelor [Brilinta] 90 mg PO BID #180 tab Transmission Status: [id number] Aspirin E.C. [Ecotrin] 81 mg PO DAILY@0800 #90 tab Transmission Status: [id number] Atorvastatin Calcium [Lipitor] 40 mg PO QHS #90 tab Transmission Status: Re[id number] Metoprolol Tartrate [Lopressor (beta natalie)] 12.5 mg PO BID #90 tab Transmission Status: Re[id number] Primary Care Physician: Isma Haney III, MD [Primary Care Provider] - Please follow up with your Primary Care Physician in: in 5-7 days Please Follow Up With: Brian Samaniego MD When: as scheduled Disposition: Home Minutes spent on discharge:: 35 Patient Condition:: Stable Medical Necessity - Tobacco Use Smoking Status: Never smoker Meaningful Use Info Meaningful Use Diagnoses (Choose all that apply): AMI - AMI Aspirin given w/in 24hrs of arrival?: Yes ASA at discharge?: Yes Statins at discharge?: Yes William/ARB at discharge?: No Reason William/ARB not ordered:: Not indicated Beta Natalie at discharge?: Yes Done w/ Acute NH measure.: Yes Documented LVEF (%): 60 Code Visit Inpatient E&M: 53998 Disch Hosp
--- NOTE | 2018-11-30 11:42 | CASEMGMT ---
Social Work Consult: Patient daughter, Mona concerned with patient returning to home due to patient spouse, Trinity drinking and falling. Informant: AUT[employer] BODY MECHANIC. Met with patient and patient spouse in room. Trinity voicing that main concern with returning to home is how often Trinity falls. This social media intern inquiring about medical alert system for Trinity and patient. Trinity stating to not have one in place but to be interested. This social media intern providing Trinity with list of medical alert systems. Trinity thanking this social media intern. Telephone call to Mona [phone]. Mona stating to also be concerned about how often Trinity falls in the home. This social media intern updating Trinity that a list of medical alert systems was provided and it is encouraged that patient and Trinity establish a medical alert system. Mona stating to also have plans to set up an aide in the home and that Trinity is now open to this. Mona making no concerns about Trinity drinking and is stating to be fine with patient returning to home. Mona provided with resources if needed. Mona thanking this social media intern. PLAN: Discharge to home with spouse. Cu[place] PRAKASH, ESTRELLA
--- NOTE | 2018-11-30 11:55 | CASEMGMT ---
RN CM Assessment Presentation: STEMI Intro role of CM and purpose of RN CM assessment to patient's . Demographics, PCP and Pharmacy verified. Pt's plans to take pt home and will be able to provide transportation home. Pt has hx of dementia; is home care and home health aides teacher. See note for details. PCP: Dr. Isma Haney III Specialists: Dr. Samaniego [facility], [place] Prescription Benefit: yes. [place] savings card given and explained to . She will have pharmacy give her copay amounts for further refills. If cost prohibitive- will contact cardiology office. LNOK: Trinity Living Arrangements: Lives with @ home. assists with any care needs. Transportation: drives Patient DC goals: DC PLAN: Home with . Harry WISE RN ACM
== END 2018-11-30 14:25 | disposition home or self-care (01) | DRG 247 ==
LOC: ED 13:59 → ICU 14:17
PROVIDERS: Admitting Provider Internal Medicine; Emergency Provider Emergency Medicine; Family Provider Family Medicine; PCP Family Medicine; Referring Provider Internal Medicine Cardiovascular Disease; Visit Provider Internal Medicine
DX: I21.19 ST elevation (STEMI) myocardial infarction involving other coronary artery of inferior wall (principal); I25.810 Atherosclerosis of coronary artery bypass graft(s) without angina pectoris; T82.855A Stenosis of coronary artery stent, initial encounter; Y93.K1 Activity, walking an animal; E03.9 Hypothyroidism, unspecified; F03.90 Unspecified dementia, unspecified severity, without behavioral disturbance, psychotic disturbance, mood disturbance, and anxiety; Z95.1 Presence of aortocoronary bypass graft
CPT/HCPCS: 71045; 80048; 80053; 80061; 84484; 85025; 85027; 85610; 85730; 92941; 93005; 93458; 97162; 97166; 97802; 99152; 99153; 99285; J7030; Q9967; A4216; C1725; C1769; C1874; C1887; C9606; J0583

== ENCOUNTER → 2019-10-06 15:00 | Outpatient (REF) | payer MEDICARE, BC, SELFPAY ==
[2019-02-23 10:20] VITALS: BMI 24.5
[2019-10-07 08:15] LABS: Color, Urine Yellow (Yellow); Glucose, Dipstick Normal (Normal); Ketone-Dipstick 5 mg/dl (Negative); Leukocyte Esterase-Dipstick 25 /ul (Negative); Nitrite-Dipstick Negative (Negative); Occult Blood-Urine Negative /ul (Negative); Protein-Dipstick Negative (Negative); Specific Gravity, Urine 1.015 (1.002-1.030); Urine Bilirubin Dipstick Negative (Negative); Urine Clarity Clear (Clear); Urine Urobilinogen Normal (Normal)
== END ==
LOC: OLS.BROOKB 15:00
PROVIDERS: PCP Family Medicine; Referring Provider Family Medicine; Visit Provider Family Medicine
DX: N39.0 Urinary tract infection, site not specified (principal)
CPT/HCPCS: 81002; 87086

== ENCOUNTER → 2020-03-14 05:00 | Outpatient (REF) | payer MEDICARE, BC, SELFPAY ==
[2019-02-23 10:20] VITALS: BMI 24.5
[2020-03-14 08:08] LABS: Hematocrit 43.7 % (40-54); Hemoglobin 13.7 g/dL (13.0-16.5); Mean Corp Hgb Conc 31.4 g/dL (32-36); Mean Corpuscular Hgb 28.9 pg (27.0-32.0); Mean Corpuscular Volume 92.2 fL (80-94); Platelet Count 209 K/mm3 (150-450); RBC Distribution Width CV 13.9 % (11.6-14.6); RBC Distribution Width SD 47.5 fl (35.1-43.9); Red Blood Count 4.74 M/mm3 (4.6-6.2); White Blood Count 8.2 K/mm3 (4.4-11.0)
[2020-03-14 08:38] LABS: ALB/GLOB Ratio 1.1 RATIO (0.9-2.4); AST(SGOT) 24 U/L (15-37); Alanine Aminotransfer ALT/SGPT 32 U/L (16-61); Albumin, Serum 3.6 g/dL (3.2-5.0); Alkaline Phosphatase 114 U/L (45-117); Anion Gap 2 (5-15); BUN 24 mg/dL (7-18); BUN/Creat Ratio 26.8 RATIO (10-20); Chloride 107 mmol/L (98-107); Creatinine, Serum 0.89 mg/dL (0.70-1.30); EST Glomerular Filtration Rate 87 mL/min (>60); Est Glom Filt Rate - Afr Amer 105 mL/min (>60); Globulin 3.4 g/dL (2.2-4.2); Glucose 110 mg/dL (74-106); Potassium 3.9 mmol/L (3.5-5.1); Sodium Level 141 mmol/L (136-145); Thyroid Stim Hormone (TSH) 1.18 uIU/mL (0.358-3.74)
== END ==
LOC: OLS.BROOKB 05:00
PROVIDERS: PCP Family Medicine; Referring Provider Family Medicine; Visit Provider Family Medicine
DX: R53.83 Other fatigue (principal); E03.9 Hypothyroidism, unspecified
CPT/HCPCS: 36415; 80053; 84443; 85027

== ENCOUNTER 2020-06-15 18:54 | Emergency (ER) | payer MEDICARE, BC, SELFPAY ==
[2019-02-23 10:20] VITALS: BMI 24.5
[2020-06-15 18:55] VITALS: BP 166/84; PULSE 82; RESP 16; TEMP 36.8; O2SAT 94; BMI 22.4
--- NOTE | 2020-06-15 19:25 | RAD_ITS ---
STUDY: X-RAY - PELVIS AND BILATERAL HIPS REASON FOR EXAM: Male, 80 years old. fall/pain TECHNIQUE: AP view of the pelvis.? 2 views of the right hip, and 2 views of the left hip were obtained. COMPARISON: None. FINDINGS: There is a non-specific bowel gas pattern. Normal visualized soft tissue structures. Normal bilateral iliac wings, sacroiliac joints and visualized sacrum. Normal bilateral superior and inferior pubic rami. Normal pubic symphysis. Normal bilateral ischial tuberosities. Normal visualized right femoral head. Normal right acetabulum. There is mild articular joint space narrowing of the right hip. Normal visualized left femoral head. Normal left acetabulum. There is mild articular joint space narrowing of the left hip. RAD/Hips B/L min 2 views w/ Pelvis IMPRESSION: Negative for fracture or dislocation. 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 Electronically Signed: Shital Clifton MD at 20:04 EDT , Service support ,
--- NOTE | 2020-06-15 19:38 | ED.VIS.FALL ---
HPI HPI - Fall History of Present Illness Chief Complaint: Fall Informant: patient, EMS and SNF Limited: dementia Occured/Mechanism Occurred: Today Mechanism/Context: Yes Same level fall Usually ambulates: Walker Pain/Injury Pain Location: none Narrative Narrative: The patient is an 80-year-old male with medical history significant for dementia who presents after a fall. The patient was in his normal state of health. He has rather significant dementia and is comfort care only. He had a fall today and would stand, but would not bear weight. The senior care reports that the right hip pain, but the patient states that it is his left hip that is hurting. He cannot recall the events of the fall. He states he is otherwise been in his normal state of health. PFSH [facility] Medical History Atherosclerosis of coronary artery bypass graft without angina pectoris Atherosclerotic heart disease of [place] coronary artery without angina pectoris Carotid bruit Claudication Dementia Essential (primary) hypertension HLD (hyperlipidemia) Hypothyroidism Home Medications donepezil 5 mg tablet 5 mg PO QDAY 03/31/17 [History Last Taken Unknown] levothyroxine 50 mcg capsule 50 mcg PO DAILY 11/06/17 [History Last Taken Unknown] memantine 10 mg tablet 10 mg PO BID #180 tab 11/10/18 [History Last Taken Unknown] aspirin 81 mg PO DAILY@0800 #90 tab 11/30/18 [Rx Last Taken Unknown] atorvastatin 40 mg PO QHS #90 tab 11/30/18 [Rx Last Taken Unknown] metoprolol tartrate 12.5 mg PO BID #90 tab 11/30/18 [Rx Last Taken Unknown] ticagrelor 90 mg PO BID #180 tab 11/30/18 [Rx Last Taken Unknown] Allergy/AdvReac Type Severity Reaction Status Date / Time cephalexin Allergy PT UNABLE Verified 06/15/20 18:58 TO RESPOND-NEEDS F/U Family History Father Cancer Lung Cancer Mother Arthritis Surgical History H/O coronary artery bypass surgery (11/22/99) History of coronary artery stent placement (11/28/18) Social History Smoking Status: Never smoker alcohol intake: former substance use type: does not use caffeine: Yes Type: coffee what type of physical activity do you participate in: other frequency: 1-2 times per week duration: 15-30 minutes/day seatbelt use: always do you feel safe at home: Yes ROS ROS ED Review of Systems ROS Unobtainable: due to mental condition and due to mental status EXAM Physical Exam Const Vital Signs: 06/15/20 18:55 06/15/20 18:59 Temperature 98.3 F Temperature Source Oral Pulse Rate 82 Respiratory Rate 16 Respiratory Pattern Normal Blood Pressure 166/84 H Blood Pressure Mean 111 Pulse Ox 94 Oxygen Delivery Method Room Air Positive well nourished and well developed General Appearance ED: well developed HEENT Reports normocephalic, head/scalp atraumatic and moist mucous membranes Eyes PERRL and EOMs intact bilaterally Neck no lymphadenopathy and supple General: Negative for tenderness Chest Wall inspection of chest normal Resp normal respiratory effort and clear to auscultation bilaterally Cardio regular rate, regular rhythm and no murmurs GI normal to inspection, nondistended, normoactive bowel sounds Palpation: Negative for tender, guarding or rebound tenderness present Back/Spine no CVA tenderness Cervical Spine: Negative for cervical spine tenderness Thoracic Spine / Upper Back: Negative for thoracic spinal tenderness Extremity normal to inspection General Extremety ED: Negative for tenderness Neuro oriented x3 and CN's II-XII intact bilaterally Neuro Narrative: No focal deficits appreciated. Sensorium / Orientation: alert Psych mental status grossly normal Skin no rashes or lesions noted, no wounds and skin turgor normal MDM MDM MDM Narrative Medical decision making narrative: The patient is an 80-year-old male presents with hip pain after an unwitnessed fall. He does have rather severe dementia and I cannot obtain much history from him. He did seem to grimace with palpation of the left hip. He had no pain with logroll. I was able to extend the hip and he had very minimal pain. His pulses were normal. I obtain plain films of bilateral hip and pelvis. There was no evidence of acute fracture. The patient is resting comfortably and sleeping without issue. At this point, I do feel that he is safe for discharge back to his facility. I did discuss this with the patient's son and daughter. They are comfortable with this plan of care. Impression 1. Mechanical fall Radiography Diagnostic Testing: Radiology Impression Hip/Pelvis X-Ray 06/15/20 19:25 IMPRESSION: Negative for fracture or dislocation. 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 Electronically Signed: Shital Clifton MD at 20:04 EDT , Service support , Discharge Plan Triage Chief Complaint: Fall ED Provider: Valdemar Connolly Dx/Rx/DC Orders Instructions: ED Mechanical Fall Prescriptions: No Action donepezil 5 mg tablet 5 mg PO QDAY RF: 0 levothyroxine 50 mcg capsule 50 mcg capsule 50 mcg PO DAILY RF: 0 memantine 10 mg tablet 10 mg PO BID Qty: 180 RF: 0 aspirin 81 MG tablet 81 mg PO DAILY@0800 Qty: 90 RF: 0 metoprolol tartrate 25 MG tablet 12.5 mg PO BID Qty: 90 RF: 0 ticagrelor 90 MG tablet 90 mg PO BID Qty: 180 RF: 3 atorvastatin 40 MG tablet 40 mg PO QHS Qty: 90 RF: 0 Primary Care Provider: Isma Haney III Referrals: Isma Haney III, MD [Primary Care Provider] -
[2020-06-16 01:42] VITALS: BP 166/80; PULSE 81; RESP 18; O2SAT 95
== END 2020-06-16 01:58 | disposition skilled nursing facility (03) ==
LOC: ED 19:54
PROVIDERS: Emergency Provider Emergency Medicine; PCP Family Medicine
DX: M25.551 Pain in right hip (principal); F03.90 Unspecified dementia, unspecified severity, without behavioral disturbance, psychotic disturbance, mood disturbance, and anxiety; E03.9 Hypothyroidism, unspecified; I25.810 Atherosclerosis of coronary artery bypass graft(s) without angina pectoris; Z79.82 Long term (current) use of aspirin
CPT/HCPCS: 73521; 99284

== ENCOUNTER → 2020-06-19 05:00 | Outpatient (REF) | payer MEDICARE, BC, SELFPAY ==
[2020-06-15 18:55] VITALS: BMI 22.4
[2020-06-19 08:17] LABS: Hemoglobin 12.9 g/dL (13.0-16.5); Mean Corp Hgb Conc 30.7 g/dL (32-36); Mean Corpuscular Hgb 27.8 pg (27.0-32.0); Mean Corpuscular Volume 90.5 fL (80-94); Mean Platelet Vol. 10.3 fl (6.2-12.0); Platelet Count 260 K/mm3 (150-450); RBC Distribution Width CV 13.2 % (11.6-14.6); RBC Distribution Width SD 43.7 fl (35.1-43.9); Red Blood Count 4.64 M/mm3 (4.6-6.2); White Blood Count 7.2 K/mm3 (4.4-11.0)
[2020-06-19 08:29] LABS: ALB/GLOB Ratio 0.8 RATIO (0.9-2.4); AST(SGOT) 23 U/L (15-37); Alanine Aminotransfer ALT/SGPT 26 U/L (16-61); Alkaline Phosphatase 93 U/L (45-117); Anion Gap 4 (5-15); BUN 31 mg/dL (7-18); BUN/Creat Ratio 31.4 RATIO (10-20); Calcium,Total 9.2 mg/dL (8.5-10.1); Chloride 108 mmol/L (98-107); Creatinine, Serum 0.99 mg/dL (0.70-1.30); EST Glomerular Filtration Rate 78 mL/min (>60); Est Glom Filt Rate - Afr Amer 94 mL/min (>60); Globulin 3.8 g/dL (2.2-4.2); Glucose 129 mg/dL (74-106); Potassium 3.6 mmol/L (3.5-5.1); Protein, Total 6.8 g/dL (6.4-8.2); Sodium Level 141 mmol/L (136-145)
== END ==
LOC: OLS.BROOKB 05:00
PROVIDERS: PCP Family Medicine; Visit Provider Family Medicine
DX: N39.0 Urinary tract infection, site not specified (principal); F03.90 Unspecified dementia, unspecified severity, without behavioral disturbance, psychotic disturbance, mood disturbance, and anxiety; R53.83 Other fatigue; E03.9 Hypothyroidism, unspecified
CPT/HCPCS: 36415; 80053; 85027

== ENCOUNTER 2020-06-19 21:56 | Emergency (ER) | payer MEDICARE, BC, SELFPAY ==
[2020-06-19 21:57] VITALS: BP 165/62; PULSE 82; RESP 16; TEMP 36.6; O2SAT 91; BMI 25.3
--- NOTE | 2020-06-19 22:34 | EKG12_ITS ---
Test Reason : FALL Blood Pressure : / mmHG Vent. Rate : 076 BPM Atrial Rate : 076 BPM P-R Int : 158 ms QRS Dur : 090 ms QT Int : 388 ms P-R-T Axes : 061 035 070 degrees QTc Int : 436 ms Normal sinus rhythm Normal ECG Confirmed by LALO MCKEON, ANA ([id number]), editorial clerk LARUA BUCHANAN ([id number]) on 06/21/2020 8:24:26 AM Referred By: ANDRE Confirmed By:ANA MAY MD
--- NOTE | 2020-06-19 22:35 | ED.VIS.FALL ---
HPI HPI - Fall History of Present Illness Chief Complaint: Fall Narrative Narrative: Patient presents from the ECF after a fall. He has had multiple falls in the past 2 to 3 days. He has significant dementia therefore I cannot get any history or review of systems from the patient, I am talking to the daughter as well as the F paperwork. As I walk into the room however and he notices me he thinks there is a dog on the floor, apparently this has been more common in the past few days. There is a concern of right hip pain. There is also a head injury tonight. No known loss of consciousness. PFSH PFS Medical History Atherosclerosis of coronary artery bypass graft without angina pectoris Atherosclerotic heart disease of [place] coronary artery without angina pectoris Carotid bruit Claudication Dementia Essential (primary) hypertension HLD (hyperlipidemia) Hypothyroidism Home Medications levothyroxine 50 mcg capsule 50 mcg PO DAILY 11/06/17 [History Last Taken Unknown] memantine 10 mg tablet 28 mg PO DAILY #180 tab 11/10/18 [History Last Taken Unknown] aspirin 81 mg PO DAILY@0800 #90 tab 11/30/18 [Rx Last Taken Unknown] atorvastatin 20 mg PO QHS 06/15/20 [History Last Taken Unknown] lorazepam [Ativan] 0.5 mg PO TID PRN 06/15/20 [History Last Taken Unknown] mirtazapine 7.5 mg PO DAILY 06/15/20 [History Last Taken Unknown] multivitamin 1 tab PO DAILY 06/15/20 [History Last Taken Unknown] quetiapine 50 mg PO DAILY 06/15/20 [History Last Taken Unknown] sertraline 100 mg PO DAILY 06/15/20 [History Last Taken Unknown] Allergy/AdvReac Type Severity Reaction Status Date / Time cephalexin Allergy PT UNABLE Verified 06/19/20 22:04 TO RESPOND-NEEDS F/U Family History Father Cancer Lung Cancer Mother Arthritis Surgical History H/O coronary artery bypass surgery (11/22/99) History of coronary artery stent placement (11/28/18) Social History Smoking Status: Never smoker alcohol intake: former substance use type: does not use caffeine: Yes Type: coffee what type of physical activity do you participate in: other frequency: 1-2 times per week duration: 15-30 minutes/day seatbelt use: always do you feel safe at home: Yes ROS ROS ED ROS Narrative Past medical history: Reviewed in the [facility] paperwork, includes major depressive disorder, hypothyroidism, hyperlipidemia, dementia, hypertension. Medications: Reviewed in the [facility] paperwork Social history: He is DNR CC. Review of systems: Unable secondary to patient's severe dementia EXAM Physical Exam Narrative Exam Narrative: Physical exam General: Patient is resting relatively comfortably in bed. He does appear chronically ill. Head: Normocephalic, Atraumatic Eyes: Conjunctiva not pale ENT: Dry mucous membranes Neck: Supple, Nontender, No lymphadenopathy Cardiovascular: Regular rate, Regular rhythm Respiratory: No distress, CTA bilaterally Abdomen: Soft, Nontender, Nondistended : Normal external genitalia Back: Nontender, Normal Inspection. Negative for: CVA tenderness Extremities: Nontender, No edema Skin: Normal color, No rash Neurological: Patient is initially somnolent but arousable. He has no gross focal deficit. He is oriented to name only. Const Vital Signs: 06/19/20 21:57 06/19/20 22:01 Temperature 97.8 F Temperature Source Temporal Pulse Rate 82 Respiratory Rate 16 Respiratory Effort Normal Respiratory Depth Normal Respiratory Pattern Normal Blood Pressure 165/62 H Blood Pressure Mean 96 Pulse Ox 91 Oxygen Delivery Method Nasal Cannula Discharge Plan Triage Chief Complaint: Fall ED Provider: Pernell Fowler Dx/Rx/DC Orders Prescriptions: No Action levothyroxine 50 mcg capsule 50 mcg capsule 50 mcg PO DAILY RF: 0 memantine 10 mg tablet 28 mg PO DAILY Qty: 180 RF: 0 aspirin 81 MG tablet 81 mg PO DAILY@0800 Qty: 90 RF: 0 multivitamin Tablet 1 tab PO DAILY RF: 0 sertraline 100 mg tablet 100 mg PO DAILY RF: 0 lorazepam [Ativan] 0.5 mg tablet 0.5 mg PO TID PRN (Reason: Anxiety) RF: 0 mirtazapine 7.5 mg tablet 7.5 mg PO DAILY RF: 0 quetiapine 50 mg tablet 50 mg PO DAILY RF: 0 atorvastatin 40 MG tablet 20 mg PO QHS RF: 0 Primary Care Provider: Isma Haney III
--- NOTE | 2020-06-19 22:38 | CT_ITS ---
STUDY: CT BRAIN WITHOUT CONTRAST REASON FOR EXAM: Male, 80 years old. trauma RADIATION DOSAGE (If Supplied By Facility): CTDIvol = ( 44.99 ) mGy, DLP = ( 846.73 ) mGycm TECHNIQUE: Transaxial CT imaging of the brain was performed without administration of intravenous contrast material. Individualized dose optimization techniques were used for this CT. COMPARISON: No relevant priors. FINDINGS: Normal soft tissue structures. Normal calvarium. There is moderate cerebral atrophy with widening of the extra-axial spaces and ventricular dilatation. There are areas of decreased attenuation within the white matter tracts of the supratentorial brain, consistent with microvascular disease changes. Normal basal ganglia and thalami. Normal brainstem. There is mild cerebellar atrophy. There is no intracranial hemorrhage. There are no findings of an acute ischemic infarction. Normal visualized paranasal sinuses. CT/Brain/Head without Contrast IMPRESSION: Chronic involutional changes of the brain. Electronically Signed: Brian Berg DO at 23:43 EDT Tel , Service support ,
[2020-06-19 22:39] VITALS: BP 154/82; PULSE 79; RESP 15; TEMP 37.1; O2SAT 97
[2020-06-19 22:54] VITALS: O2SAT 95
[2020-06-19] MEDS: 0.9% Normal Saline 1,000 ML 999 ML IV (22:55)
[2020-06-19 23:12] LABS: Absolute Lymphocyte Count 1.32 X10^3/uL (0.83-4.51); Absolute Neutrophil Count 5.3 X10^3/uL (2.0-7.7); Basophil# 0.06 X10^3/uL; Basophil% 0.8 % (0-1); Eosinophil# 0.31 X10^3/uL; Hematocrit 41.9 % (40-54); Hemoglobin 13.3 g/dL (13.0-16.5); Lymphocyte # 1.32 X10^3/ul (0.83-4.51); Mean Corp Hgb Conc 31.7 g/dL (32-36); Mean Corpuscular Hgb 28.9 pg (27.0-32.0); Mean Corpuscular Volume 90.9 fL (80-94); Monocyte# 0.77 X10^3/uL; Monocyte% 9.9 % (0-10); NRBC Flagged by Analyzer 0 % (0-5); Neutrophil # 5.27 X10^3/uL (2.7-7.7); Neutrophil % 67.9 % (47-70); Platelet Count 287 K/mm3 (150-450); RBC Distribution Width CV 13.2 % (11.6-14.6); RBC Distribution Width SD 43.9 fl (35.1-43.9); Red Blood Count 4.61 M/mm3 (4.6-6.2); White Blood Count 7.8 K/mm3 (4.4-11.0)
[2020-06-19 23:25] LABS: Prothrombin Time (Protime)PT. 12.8 SECONDS (11.7-14.9)
[2020-06-19 23:31] LABS: ALB/GLOB Ratio 0.8 RATIO (0.9-2.4); AST(SGOT) 21 U/L (15-37); Alanine Aminotransfer ALT/SGPT 28 U/L (16-61); Albumin, Serum 3.1 g/dL (3.2-5.0); Alkaline Phosphatase 132 U/L (45-117); Anion Gap 3 (5-15); BUN 36 mg/dL (7-18); BUN/Creat Ratio 31.3 RATIO (10-20); Calcium,Total 9.2 mg/dL (8.5-10.1); Chloride 109 mmol/L (98-107); Creatinine, Serum 1.15 mg/dL (0.70-1.30); EST Glomerular Filtration Rate 65 mL/min (>60); Est Glom Filt Rate - Afr Amer 79 mL/min (>60); Estimated Creatinine Clearance 49.57 ml/min; Glucose 112 mg/dL (74-106); Potassium 3.8 mmol/L (3.5-5.1); Protein, Total 7.1 g/dL (6.4-8.2); Sodium Level 143 mmol/L (136-145)
[2020-06-19 23:33] LABS: Lactic Acid 1.1 mmol/L (0.4-1.9)
[2020-06-19 23:34] VITALS: TEMP 37.1
--- NOTE | 2020-06-19 23:35 | RAD_ITS ---
STUDY: X-RAY CHEST REASON FOR EXAM: Male, 80 years old. weakness, fall at nursing facility today. Patient was uncooperative for exam because of possible dementia. TECHNIQUE: Single AP portable view of the chest. COMPARISON: None. FINDINGS: The lungs are clear and expanded. There is no demonstrated pleural abnormality. Sternal cerclage wires are present from a prior sternotomy. Heart size is borderline enlarged. Normal mediastinum and percy. Normal visualized pulmonary arteries. Normal visualized aortic arch and descending thoracic aorta. Normal visualized thoracic spine. Normal visualized ribs, clavicles, and shoulders. There is no demonstrated abnormality of the visualized soft tissue structures of the upper abdomen. RAD/Chest 1 View (Portable) IMPRESSION: Lungs are clear Electronically Signed: Brian Berg DO at 0:00 EDT Tel , Service support ,
--- NOTE | 2020-06-19 23:35 | RAD_ITS ---
STUDY: X-RAY - PELVIS AND BILATERAL HIPS REASON FOR EXAM: Male, 80 years old. trauma, fall at nursing facility today. Patient was uncooperative due to possible dementia. Bilateral hip pain. TECHNIQUE: AP view of the pelvis.? 2 views of the right hip, and 2 views of the left hip were obtained. COMPARISON: None. FINDINGS: No evidence of acute fracture or dislocation. Moderate bilateral hip degenerative changes. Degenerative change of the lower lumbar spine as well. Fecal retention throughout the colon RAD/Hips B/L min 2 views w/ Pelvis IMPRESSION: No acute findings. Consider CT if clinically indicated Electronically Signed: Brian Berg DO at 0:01 EDT Tel , Service support ,
[2020-06-20] VITALS: TEMP 36.7
[2020-06-20 00:17] LABS: Bacteria 0 SEEN /hpf (None Seen); Mucous, Urine 0 SEEN /hpf (<or=2+); Squamous Epithelial Cells - UA 0 SEEN /hpf (0-5); White Blood Cells 0 SEEN /hpf (0-5)
[2020-06-20 00:19] LABS: Color, Urine Yellow (Yellow); Glucose, Dipstick Normal (Normal); Ketone-Dipstick Negative (Negative); Leukocyte Esterase-Dipstick Negative /ul (Negative); Nitrite-Dipstick Negative (Negative); Occult Blood-Urine 50 /ul (Negative); Protein-Dipstick Negative (Negative); Urine Bilirubin Dipstick Negative (Negative); Urine Clarity Clear (Clear); Urine Urobilinogen 1 mg/dl (Normal)
[2020-06-20 00:32] LABS: Red Blood Cells-Urine 5-10 SEEN /hpf (0-5)
[2020-06-20 01:00] VITALS: TEMP 36.2
--- NOTE | 2020-06-20 05:35 | ED.RN ---
daughter updated on patients condition at this time
== END 2020-06-20 02:59 | disposition skilled nursing facility (03) ==
PROVIDERS: Emergency Provider Emergency Medicine; PCP Family Medicine
DX: M25.551 Pain in right hip (principal); I25.810 Atherosclerosis of coronary artery bypass graft(s) without angina pectoris; E78.5 Hyperlipidemia, unspecified; F03.90 Unspecified dementia, unspecified severity, without behavioral disturbance, psychotic disturbance, mood disturbance, and anxiety; E03.9 Hypothyroidism, unspecified; F32.9 Major depressive disorder, single episode, unspecified; Z66 Do not resuscitate; Z79.82 Long term (current) use of aspirin; Z79.899 Other long term (current) drug therapy
CPT/HCPCS: 36415; 70450; 71045; 73521; 80053; 81001; 83605; 85025; 85027; 85610; 85730; 87040; 87086; 93005; 96372; 99285; J7030

== ENCOUNTER 2020-06-27 14:15 | Emergency (ER) | payer MEDICARE, BC, SELFPAY ==
[2020-06-27 14:16] VITALS: BP 113/73; PULSE 81; RESP 18; TEMP 36.3; O2SAT 92; BMI 23.6
--- NOTE | 2020-06-27 14:24 | CT_ITS ---
EXAM: CT CERVICAL SPINE WITHOUT INTRAVENOUS CONTRAST CLINICAL INDICATION: head injury TECHNIQUE: Helically acquired images were obtained of the cervical spine without intravenous contrast. 2D reformatted images were reviewed. This CT exam was performed using one or more of the following dose reduction techniques: automated exposure control, adjustment of the mA and/or kV according to patient size, and/or use of iterative reconstruction technique. This report was created using [employer] report generation technology. COMPARISON: None. FINDINGS: VERTEBRAE: Anterior spondylosis at multiple levels. No fracture. No traumatic subluxation. No discrete lytic or blastic abnormality. Normal alignment. Normal craniocervical junction and cervicothoracic junction. DISCS/SPINAL CANAL/NEURAL FORAMINA: Disc space narrowing at C5-C6 and C6-C7. Right more than left facet arthropathy and uncovertebral hypertrophy with multilevel foraminal narrowing. No critical canal stenosis. SOFT TISSUES: Unremarkable. No prevertebral soft tissue swelling. VASCULATURE: Atherosclerosis of the carotid arteries. LYMPH NODES: Unremarkable. No cervical adenopathy. LUNG APICES: Unremarkable as visualized. Clear. CT/Spine Cervical without Contras IMPRESSION: No acute findings in the cervical spine. Electronically Signed: Aman Nunez MD ([place]) at 15:13 EDT , Service support ,
--- NOTE | 2020-06-27 14:24 | CT_ITS ---
STUDY: CT BRAIN WITHOUT CONTRAST REASON FOR EXAM: Male, 80 years old. head injury RADIATION DOSAGE (If Supplied By Facility): CTDIvol = ( 28.87 ) mGy, DLP = ( 1114.29 ) mGycm TECHNIQUE: Transaxial CT imaging of the brain was performed without administration of intravenous contrast material. Individualized dose optimization techniques were used for this CT. COMPARISON: 06/19/2020 FINDINGS: Normal soft tissue structures. Normal calvarium. There is moderate cerebral atrophy with widening of the extra-axial spaces and ventricular dilatation. There are areas of decreased attenuation within the white matter tracts of the supratentorial brain, consistent with microvascular disease changes. Normal basal ganglia and thalami. Normal brainstem. Normal cerebellum. There is no intracranial hemorrhage. There are no findings of an acute ischemic infarction. Normal visualized paranasal sinuses. CT/Brain/Head without Contrast IMPRESSION: No acute intracranial hemorrhage or mass effect. Electronically Signed: Aman Nunez MD (Brooks) at 15:11 EDT , Service support ,
--- NOTE | 2020-06-27 14:25 | ED.VIS.FALL ---
HPI HPI - Fall History of Present Illness Chief Complaint: Fall Narrative Narrative: 80-year-old male with past medical history of dementia presents with concern for head injury at local nursing facility. Brought in by EMS after he fell backwards upon the bathroom and struck his head. No loss of consciousness. Patient is not on anticoagulation. Patient has dementia so history is difficult to obtain. PFSH PFSH Medical History Angina at rest Atherosclerosis of coronary artery bypass graft without angina pectoris Atherosclerotic heart disease of [place] coronary artery without angina pectoris Carotid bruit Claudication Dementia Depression Essential (primary) hypertension HLD (hyperlipidemia) Hypothyroidism Osteoarthritis Home Medications levothyroxine 50 mcg capsule 50 mcg PO DAILY 11/06/17 [History Last Taken Unknown] memantine 10 mg tablet 28 mg PO DAILY #180 tab 11/10/18 [History Last Taken Unknown] aspirin 81 mg PO DAILY@0800 #90 tab 11/30/18 [Rx Last Taken Unknown] atorvastatin 20 mg PO QHS 06/15/20 [History Last Taken Unknown] lorazepam [Ativan] 0.5 mg PO TID PRN 06/15/20 [History Last Taken Unknown] mirtazapine 7.5 mg PO DAILY 06/15/20 [History Last Taken Unknown] multivitamin 1 tab PO DAILY 06/15/20 [History Last Taken Unknown] quetiapine 50 mg PO DAILY 06/15/20 [History Last Taken Unknown] sertraline 100 mg PO DAILY 06/15/20 [History Last Taken Unknown] Allergy/AdvReac Type Severity Reaction Status Date / Time cephalexin Allergy PT UNABLE Verified 06/19/20 22:04 TO RESPOND-NEEDS F/U Family History Father Cancer Lung Cancer Mother Arthritis Surgical History H/O coronary artery bypass surgery (11/22/99) History of coronary artery stent placement (11/28/18) Social History Smoking Status: Never smoker alcohol intake: former substance use type: does not use caffeine: Yes Type: coffee what type of physical activity do you participate in: other frequency: 1-2 times per week duration: 15-30 minutes/day seatbelt use: always do you feel safe at home: Yes ROS ROS ED Review of Systems ROS Unobtainable: due to mental status EXAM Physical Exam Const Vital Signs: 06/27/20 14:16 06/27/20 14:50 Temperature 97.4 F L Temperature Source Temporal Pulse Rate 81 Respiratory Rate 18 Respiratory Effort Normal Non-Labored Blood Pressure 113/73 Blood Pressure Mean 86 Pulse Ox 92 Oxygen Delivery Method Room Air Positive well nourished and well developed General Appearance ED: well developed HEENT Reports TM's clear and moist mucous membranes normocephalic and atraumatic Tympanic Membrane ED: Yes TM's clear Eyes PERRL and EOMs intact bilaterally Neck no lymphadenopathy, supple and no JVD Chest Wall inspection of chest normal Resp normal respiratory effort and clear to auscultation bilaterally Cardio regular rate, S1 normal heart sound, S2 normal heart sound and no murmurs Peripheral Pulses: pulses 2+ throughout GI soft to palpation, non-tender and non-distended Back/Spine no CVA tenderness and no thoracic nor lumbar tenderness Extremity normal to inspection General Extremety ED: Negative for edema or tenderness General Extremity: Negative for edema Neuro Sensorium / Orientation: alert Psych mental status grossly normal Skin no rashes or lesions noted MDM MDM MDM Narrative Medical decision making narrative: Patient appears well and nontoxic. No evidence of obvious injury. Given the inability to obtain accurate history because of the patient's dementia CT brain and cervical spine was done which were negative. On reevaluation at 1515 patient has no deterioration and will be discharged back to nursing facility. Stable at time of discharge. Lab Data Attestation: I reviewed the patient's lab results. Radiography Diagnostic Testing: Radiology Impression Brain CT 06/27/20 14:24 IMPRESSION: No acute intracranial hemorrhage or mass effect. Electronically Signed: Aman Nunez MD ([place]) at 15:11 EDT , Service support , Cervical Spine CT 06/27/20 14:24 IMPRESSION: No acute findings in the cervical spine. Electronically Signed: Aman Nunez MD ([place]oks) at 15:13 EDT , Service support , Discharge Plan Triage Chief Complaint: Fall ED Provider: Jesús Loving Dx/Rx/DC Orders Clinical Impression: Head injury Instructions: ED Fall Prevention, ED Head Injury (Adult) Prescriptions: No Action levothyroxine 50 mcg capsule 50 mcg capsule 50 mcg PO DAILY RF: 0 memantine 10 mg tablet 28 mg PO DAILY Qty: 180 RF: 0 aspirin 81 MG tablet 81 mg PO DAILY@0800 Qty: 90 RF: 0 multivitamin Tablet 1 tab PO DAILY RF: 0 sertraline 100 mg tablet 100 mg PO DAILY RF: 0 lorazepam [Ativan] 0.5 mg tablet 0.5 mg PO TID PRN (Reason: Anxiety) RF: 0 mirtazapine 7.5 mg tablet 7.5 mg PO DAILY RF: 0 quetiapine 50 mg tablet 50 mg PO DAILY RF: 0 atorvastatin 40 MG tablet 20 mg PO QHS RF: 0 Primary Care Provider: Isma Haney III Referrals: Isma Haney III, MD [Primary Care Provider] - 2 Days Disposition Disposition: Home, self care
--- NOTE | 2020-06-27 17:38 | ED.RN ---
WITH THE PATIENT PERMISSION, THIS RN SPOKE WITH PT SON ABOUT VISIT AND DISCHARGE BACK TO [facility]. PT AWAITING RIDE HOME.
[2020-06-27 18:44] VITALS: BP 120/82; PULSE 71; RESP 18; O2SAT 98
== END 2020-06-27 18:46 | disposition skilled nursing facility (03) ==
PROVIDERS: Emergency Provider Emergency Medicine; PCP Family Medicine
DX: S09.90XA Unspecified injury of head, initial encounter (principal); W01.198A Fall on same level from slipping, tripping and stumbling with subsequent striking against other object, initial encounter; Y93.89 Activity, other specified; Y92.121 Bathroom in nursing home as the place of occurrence of the external cause; Y99.9 Unspecified external cause status; I25.10 Atherosclerotic heart disease of native coronary artery without angina pectoris; F03.90 Unspecified dementia, unspecified severity, without behavioral disturbance, psychotic disturbance, mood disturbance, and anxiety; I10 Essential (primary) hypertension; E78.5 Hyperlipidemia, unspecified; E03.9 Hypothyroidism, unspecified; F32.9 Major depressive disorder, single episode, unspecified; M19.90 Unspecified osteoarthritis, unspecified site; Z79.82 Long term (current) use of aspirin
CPT/HCPCS: 70450; 72125; 99284

== ENCOUNTER 2020-07-01 11:30 | Emergency (ER) | payer MEDICARE, BC, SELFPAY ==
[2020-07-01 11:36] VITALS: BP 135/80; PULSE 83; RESP 16; TEMP 36.6; O2SAT 96; BMI 24.7
--- NOTE | 2020-07-01 11:39 | EKG12_ITS ---
Test Reason : Blood Pressure : / mmHG Vent. Rate : 080 BPM Atrial Rate : 080 BPM P-R Int : 196 ms QRS Dur : 090 ms QT Int : 390 ms P-R-T Axes : 081 027 065 degrees QTc Int : 449 ms Normal sinus rhythm Normal ECG Confirmed by RUBEN MCKEON, JANINE ([id number]), assistant production editor LAURA BUCHANAN ([id number]) on 07/04/2020 9:39:40 AM Referred By: RU Confirmed By:JANINE MIRANDA MD
--- NOTE | 2020-07-01 11:39 | CT_ITS ---
STUDY: CT CERVICAL SPINE WITHOUT CONTRAST REASON FOR EXAM: Male, 80 years old. fall, trauma RADIATION DOSAGE (If Supplied By Facility): CTDIvol = ( 16.09 ) mGy, DLP = ( 374.78 ) mGycm TECHNIQUE: High resolution transaxial imaging was performed without contrast material. Sagittal and coronal images were reconstructed. Individualized dose optimization techniques were used for this CT. COMPARISON: 06/27/2020 FINDINGS: Normal craniovertebral junction. There are degenerative changes of the anterior atlantoaxial articulation. Normal odontoid process. Normal cervical lordosis. Normal vertebral bodies and posterior osseous elements. C2-3: Moderate right facet hypertrophy produces mild right neural foraminal stenosis. No central spinal stenosis. C3-4: Moderate right facet hypertrophy and right uncovertebral hypertrophy produces moderate right neural foraminal stenosis. No central spinal stenosis. C4-5: Moderate right facet hypertrophy produces mild right neural foraminal stenosis. No central spinal stenosis. C5-6: Moderate right facet hypertrophy and mild left facet hypertrophy with mild bilateral neural foraminal stenosis. Mild broad disc osteophyte complex and bilateral vertebral hypertrophy produces mild spinal stenosis. C6-7: Mild broad disc osteophyte complex and bilateral vertebral hypertrophy produces a mild spinal stenosis and mild bilateral neural foraminal stenosis. C7-T1: Normal endplates. Normal disc height and morphology. Normal central canal and intervertebral neuroforamina. Normal visualized soft tissue structures. CT/Spine Cervical without Contras IMPRESSION: No acute fracture or subluxation. Electronically Signed: Deandre Paz MD at 13:45 EDT Tel , Service support ,
--- NOTE | 2020-07-01 11:39 | CT_ITS ---
STUDY: CT BRAIN WITHOUT CONTRAST REASON FOR EXAM: Male, 80 years old. trauma RADIATION DOSAGE (If Supplied By Facility): CTDIvol = ( 44.99 ) mGy, DLP = ( 846.73 ) mGycm TECHNIQUE: Transaxial CT imaging of the brain was performed without administration of intravenous contrast material. Individualized dose optimization techniques were used for this CT. COMPARISON: 06/27/2020 FINDINGS: Normal soft tissue structures. Normal calvarium. There is moderate cerebral atrophy with widening of the extra-axial spaces and ventricular dilatation. There are areas of decreased attenuation within the white matter tracts of the supratentorial brain, consistent with microvascular disease changes. Normal basal ganglia and thalami. Normal brainstem. Normal cerebellum. There is no intracranial hemorrhage. There are no findings of an acute ischemic infarction. Normal visualized paranasal sinuses. CT/Brain/Head without Contrast IMPRESSION: Chronic involutional changes of the brain. Electronically Signed: Deandre Paz MD at 13:42 EDT Tel , Service support ,
--- NOTE | 2020-07-01 11:39 | RAD_ITS ---
STUDY: X-RAY - PELVIS REASON FOR EXAM: Male, 80 years old. fall TECHNIQUE: One view of the pelvis was obtained. COMPARISON: None. FINDINGS: There is a non-specific bowel gas pattern. Normal visualized soft tissue structures. Normal bilateral iliac wings, sacroiliac joints and visualized sacrum. Normal visualized bilateral superior and inferior pubic rami. Normal pubic symphysis. Normal ischial tuberosities. Normal visualized right femoral head. Normal right acetabulum. Normal right hip joint. Normal visualized left femoral head. Normal left acetabulum. Normal left hip joint. RAD/Pelvis 1 or 2 Views IMPRESSION: Normal x-ray examination of the pelvis. Electronically Signed: Deandre Paz MD at 13:55 EDT Tel , Service support ,
--- NOTE | 2020-07-01 11:42 | ED.VIS.FALL ---
HPI HPI - Fall History of Present Illness Chief Complaint: Fall Detail of Chief Complaint: Fall that occurred prior to arrival in the emergency department Informant: EMS Limited: dementia Occured/Mechanism Occurred: Today Narrative Narrative: Patient from extended care facility dementia unit where he had a witnessed fall. Patient was standing urinating when he slipped in some urine and hit his head. No loss of consciousness. Patient is a very poor historian. Patient did sustain a laceration to his upper lip. PFSH PFSH Medical History Angina at rest Atherosclerosis of coronary artery bypass graft without angina pectoris Atherosclerotic heart disease of [place] coronary artery without angina pectoris Carotid bruit Claudication Dementia Depression Essential (primary) hypertension HLD (hyperlipidemia) Hypothyroidism Osteoarthritis Home Medications levothyroxine 50 mcg capsule 50 mcg PO DAILY 11/06/17 [History Last Taken Unknown] memantine 10 mg tablet 28 mg PO DAILY #180 tab 11/10/18 [History Last Taken Unknown] aspirin 81 mg PO DAILY@0800 #90 tab 11/30/18 [Rx Last Taken Unknown] atorvastatin 20 mg PO QHS 06/15/20 [History Last Taken Unknown] lorazepam [Ativan] 0.5 mg PO TID PRN 06/15/20 [History Last Taken Unknown] mirtazapine 7.5 mg PO DAILY 06/15/20 [History Last Taken Unknown] multivitamin 1 tab PO DAILY 06/15/20 [History Last Taken Unknown] quetiapine 50 mg PO DAILY 06/15/20 [History Last Taken Unknown] sertraline 100 mg PO DAILY 06/15/20 [History Last Taken Unknown] Allergy/AdvReac Type Severity Reaction Status Date / Time cephalexin Allergy PT UNABLE Verified 07/01/20 11:35 TO RESPOND-NEEDS F/U Family History Father Cancer Lung Cancer Mother Arthritis Surgical History H/O coronary artery bypass surgery (11/22/99) History of coronary artery stent placement (11/28/18) Social History Smoking Status: Never smoker alcohol intake: former substance use type: does not use caffeine: Yes Type: coffee what type of physical activity do you participate in: other frequency: 1-2 times per week duration: 15-30 minutes/day seatbelt use: always do you feel safe at home: Yes ROS ROS ED Review of Systems ROS Unobtainable: due to mental condition EXAM Physical Exam Const Vital Signs: 07/01/20 11:36 07/01/20 11:38 Temperature 97.9 F Temperature Source Temporal Pulse Rate 83 Respiratory Rate 16 Respiratory Effort Normal Non-Labored Blood Pressure 135/80 H Blood Pressure Mean 98 Pulse Ox 96 Oxygen Delivery Method Room Air Room Air Positive well nourished and well developed General Appearance ED: well developed and NAD HEENT Reports TM's clear and moist mucous membranes HEENT Narrative: Patient has a 2 cm laceration to the left upper lip mostly mucosal surface. It does not cross the [place]mil[place] border. The lip is swollen. No dental trauma noted. normocephalic and trauma; Negative for atraumatic or tenderness Tympanic Membrane ED: Yes TM's clear Eyes PERRL and EOMs intact bilaterally General Eye ED: Negative for pale conjunctiva or scleral icterus Neck no lymphadenopathy, supple and no JVD General: Negative for tenderness Chest Wall inspection of chest normal and palpation of chest normal Chest: Negative for tenderness Resp normal respiratory effort and clear to auscultation bilaterally Effort and Inspection: Negative for respiratory distress or pain with movement Auscultation: Negative for rhonchi, wheezes or diminished lung sounds Cardio regular rate, regular rhythm, S1 normal heart sound, S2 normal heart sound and no murmurs Peripheral Pulses: pulses 2+ throughout GI normal to inspection, nondistended, normoactive bowel sounds, soft to palpation, non-tender, non-distended and no masses Back/Spine no CVA tenderness and no thoracic nor lumbar tenderness Extremity normal to inspection, full ROM, normal capillary refill and no joint enlargement General Extremety ED: Negative for edema General Extremity: Negative for edema Neuro oriented x3, CN's II-XII intact bilaterally, no sensory deficits noted and gait normal Sensorium / Orientation: awake, alert, oriented to person, oriented to place and oriented to time Motor Exam: strength 5/5 throughout and strength abnormal Psych mental status grossly normal Skin no rashes or lesions noted and no wounds MDM MDM MDM Narrative Medical decision making narrative: Patient had a CT scan of the brain and C-spine and and they were unremarkable. Patient at his baseline per daughter. Patient will be discharged back to [facility]. Lab Data Labs: Laboratory Results - last 24 hr 07/01/20 07/01/20 12:05 12:05 WBC 6.3 RBC 4.13 L Hgb 11.8 L Hct 37.6 L MCV 91.0 MCH 28.6 MCHC 31.4 L RDW Std Deviation 44.5 H RDW Coeff of Jose G 13.3 Plt Count 297 MPV 9.3 Immature Gran % (Auto) 0.300 Neut % (Auto) 58.8 Lymph % (Auto) 24.1 Whitman % (Auto) 10.4 H Eos % (Auto) 5.4 H Baso % (Auto) 1.0 Absolute Neuts (auto) 3.7 Absolute Lymphs (auto) 1.51 Nucleated RBC % 0 Sodium 144 Potassium 3.7 Chloride 109 H Carbon Dioxide 31.0 Anion Gap 4 L BUN 17 Creatinine 1.04 Estim Creat Clear Calc 58.49 Est GFR (MDRD) Af Amer 88 Est GFR (MDRD) Non-Af 73 BUN/Creatinine Ratio 16.3 Glucose 142 H Calcium 8.3 L Troponin I < 0.015 Radiography Diagnostic Testing: Radiology Impression Brain CT 07/01/20 11:39 IMPRESSION: Chronic involutional changes of the brain. Electronically Signed: Deandre Paz MD at 13:42 EDT Tel , Service support , Cervical Spine CT 07/01/20 11:39 IMPRESSION: No acute fracture or subluxation. Electronically Signed: Deandre Paz MD at 13:45 EDT Tel , Service support , Pelvis X-Ray 07/01/20 11:39 IMPRESSION: Normal x-ray examination of the pelvis. Electronically Signed: Deandre Paz MD at 13:55 EDT Tel , Service support , Patient had 1 view pelvis x-ray obtained that interpreted by myself as no acute fractures of the pelvis or hips. Official report from radiology pending. EKG Initial EKG: Comments: Sinus rhythm with a ventricular rate of 80 bpm with no acute ST segment changes Procedures Lacerations Laceration repair of upper lip. Using 5-0 Vicryl rapid suture a total of 2 single erupted sutures placed with good wound edge approximation. Wound initially cleansed with Shur-Clens and irrigated with saline. Patient tolerated procedure well.: Length: 0.79 in Number of Sutures/[place]: 2 Suture Information: Vicryl Comment: Wound cleansed with Shur-Clens and irrigated with copious saline. Using 5-0 Vicryl Rapide to see interrupted sutures placed with good wound edge approximation. Patient tolerated procedure well. Discharge Plan Triage Chief Complaint: Fall ED Provider: Katina Goodman Dx/Rx/DC Orders Clinical Impression: Fall, Closed head injury, Laceration of lip Instructions: ED Mechanical Fall, ED Head Injury (Adult), ED Laceration, Lip or Mouth Prescriptions: No Action levothyroxine 50 mcg capsule 50 mcg capsule 50 mcg PO DAILY RF: 0 memantine 10 mg tablet 28 mg PO DAILY Qty: 180 RF: 0 aspirin 81 MG tablet 81 mg PO DAILY@0800 Qty: 90 RF: 0 multivitamin Tablet 1 tab PO DAILY RF: 0 sertraline 100 mg tablet 100 mg PO DAILY RF: 0 lorazepam [Ativan] 0.5 mg tablet 0.5 mg PO TID PRN (Reason: Anxiety) RF: 0 mirtazapine 7.5 mg tablet 7.5 mg PO DAILY RF: 0 quetiapine 50 mg tablet 50 mg PO DAILY RF: 0 atorvastatin 40 MG tablet 20 mg PO QHS RF: 0 Primary Care Provider: Melissa Knott Referrals: Melissa Knott MD [Primary Care Provider] - 3-5 Days Disposition Disposition: Home, self care
[2020-07-01] MEDS: 0.9% Normal Saline 1,000 ML 150 ML IV (12:00)
[2020-07-01 12:14] LABS: Absolute Lymphocyte Count 1.51 X10^3/uL (0.83-4.51); Absolute Neutrophil Count 3.7 X10^3/uL (2.0-7.7); Basophil# 0.06 X10^3/uL; Eosinophil# 0.34 X10^3/uL; Eosinophils% 5.4 % (0-5); Hematocrit 37.6 % (40-54); Hemoglobin 11.8 g/dL (13.0-16.5); Lymphocyte # 1.51 X10^3/ul (0.83-4.51); Lymphocyte % 24.1 % (19-41); Mean Corp Hgb Conc 31.4 g/dL (32-36); Mean Corpuscular Hgb 28.6 pg (27.0-32.0); Mean Platelet Vol. 9.3 fl (6.2-12.0); Monocyte# 0.65 X10^3/uL; Monocyte% 10.4 % (0-10); NRBC Flagged by Analyzer 0 % (0-5); Neutrophil # 3.69 X10^3/uL (2.7-7.7); Neutrophil % 58.8 % (47-70); Platelet Count 297 K/mm3 (150-450); RBC Distribution Width CV 13.3 % (11.6-14.6); RBC Distribution Width SD 44.5 fl (35.1-43.9); Red Blood Count 4.13 M/mm3 (4.6-6.2); White Blood Count 6.3 K/mm3 (4.4-11.0)
[2020-07-01 12:34] LABS: Anion Gap 4 (5-15); BUN 17 mg/dL (7-18); BUN/Creat Ratio 16.3 RATIO (10-20); Calcium,Total 8.3 mg/dL (8.5-10.1); Chloride 109 mmol/L (98-107); Creatinine, Serum 1.04 mg/dL (0.70-1.30); EST Glomerular Filtration Rate 73 mL/min (>60); Est Glom Filt Rate - Afr Amer 88 mL/min (>60); Estimated Creatinine Clearance 58.49 ml/min; Glucose 142 mg/dL (74-106); Potassium 3.7 mmol/L (3.5-5.1); Sodium Level 144 mmol/L (136-145)
[2020-07-01 14:08] VITALS: BP 119/58; PULSE 68; RESP 11
[2020-07-01] MEDS: Lidocaine 1% (20 ml mdv) 20 ML Vial INFILT (14:09)
== END 2020-07-01 14:23 | disposition home or self-care (01) ==
PROVIDERS: Emergency Provider Emergency Medicine; PCP Family Medicine
DX: S09.90XA Unspecified injury of head, initial encounter (principal); S01.511A Laceration without foreign body of lip, initial encounter; W01.10XA Fall on same level from slipping, tripping and stumbling with subsequent striking against unspecified object, initial encounter; Y93.9 Activity, unspecified; Y92.199 Unspecified place in other specified residential institution as the place of occurrence of the external cause; Y99.9 Unspecified external cause status; F03.90 Unspecified dementia, unspecified severity, without behavioral disturbance, psychotic disturbance, mood disturbance, and anxiety; I25.10 Atherosclerotic heart disease of native coronary artery without angina pectoris; F32.9 Major depressive disorder, single episode, unspecified; I10 Essential (primary) hypertension; E78.5 Hyperlipidemia, unspecified; E03.9 Hypothyroidism, unspecified; M19.90 Unspecified osteoarthritis, unspecified site; Z79.82 Long term (current) use of aspirin
CPT/HCPCS: 12011; 70450; 72125; 72170; 80048; 84484; 85025; 93005; 96360; 96361; 99285; J7030; A4216

== ENCOUNTER 2020-07-17 16:06 | Emergency (ER) | payer MEDICARE, BC, SELFPAY ==
[2020-07-17 16:10] VITALS: BP 154/75; PULSE 73; RESP 14; TEMP 36.6; O2SAT 97; BMI 26.3
--- NOTE | 2020-07-17 17:05 | ED.VIS.FALL ---
HPI HPI - Fall History of Present Illness Chief Complaint: Fall Informant: patient, EMS and SNF Occured/Mechanism Occurred: Today Mechanism/Context: Yes same level fall Pain/Injury Pain Location: none Current Severity: Gone Narrative Narrative: 80-year-old demented male who is DNR [facility]. Has frequent falls. Reportedly they felt the longterm. They sent him in for evaluation. Patient suffers from dementia and is unable give any history. I did call the longterm and spoke to one of his nurses. She said he fell and they were concerned so they sent him in. I also spoke to his son. While discussing with his son I looked at his recent work-up she has had 3 CAT scans of his brain in the last 4 weeks. He is also had lab work several times all of which was unremarkable. Son and I discussed all of this his exam is unremarkable today he is comfortable with him being discharged home without any further work-up. Prior similar symptoms: Yes Recent Illness/Hospitalization: Yes PFSH PFSH Medical History Angina at rest Atherosclerosis of coronary artery bypass graft without angina pectoris Atherosclerotic heart disease of [place] coronary artery without angina pectoris Carotid bruit Claudication Dementia Depression Essential (primary) hypertension HLD (hyperlipidemia) Hypothyroidism Osteoarthritis Home Medications levothyroxine 50 mcg capsule 50 mcg PO DAILY 11/06/17 [History Last Taken Unknown] memantine 10 mg tablet 28 mg PO DAILY #180 tab 11/10/18 [History Last Taken Unknown] aspirin 81 mg PO DAILY@0800 #90 tab 11/30/18 [Rx Last Taken Unknown] atorvastatin 20 mg PO QHS 06/15/20 [History Last Taken Unknown] lorazepam [Ativan] 0.5 mg PO TID PRN 06/15/20 [History Last Taken Unknown] mirtazapine 7.5 mg PO DAILY 06/15/20 [History Last Taken Unknown] multivitamin 1 tab PO DAILY 06/15/20 [History Last Taken Unknown] quetiapine 50 mg PO DAILY 06/15/20 [History Last Taken Unknown] sertraline 100 mg PO DAILY 06/15/20 [History Last Taken Unknown] Allergy/AdvReac Type Severity Reaction Status Date / Time cephalexin Allergy PT UNABLE Verified 07/17/20 16:15 TO RESPOND-NEEDS F/U Family History Father Cancer Lung Cancer Mother Arthritis Surgical History H/O coronary artery bypass surgery (11/22/99) History of coronary artery stent placement (11/28/18) Social History Smoking Status: Never smoker alcohol intake: former substance use type: does not use caffeine: Yes Type: coffee what type of physical activity do you participate in: other frequency: 1-2 times per week duration: 15-30 minutes/day seatbelt use: always do you feel safe at home: Yes ROS ROS ED ROS Narrative Patient has dementia and is unable give me any history. Review of Systems ROS Unobtainable: due to mental status EXAM Physical Exam Narrative Exam Narrative: Older male no acute distress. Vital signs stable afebrile. Exam unremarkable other than his dementia. HEENT no signs of trauma. Pupils round reactive light. Nontender no hematomas. C-spine nontender. Trachea midline. Lungs are clear equal symmetrical bilaterally. Heart regular rate and rhythm. Chest wall nontender. Abdomen soft nontender normal bowel sounds no peritoneal signs. Pelvic girdle intact. Hips nontender. No shortening or rotation. Patient moves all 4 extremities. Nontender. Back is nontender. Neurologically he is demented. He is unable to give any history. He does follow limited commands. Const Vital Signs: 07/17/20 16:10 Temperature 97.8 F Temperature Source Temporal Pulse Rate 73 Respiratory Rate 14 Blood Pressure 154/75 H Blood Pressure Mean 101 Pulse Ox 97 Oxygen Delivery Method Room Air Positive well nourished and well developed; Negative for obese General Appearance ED: well developed Nutritional Appearance: Negative for obese HEENT Reports normocephalic atraumatic; Negative for trauma or tenderness Eyes PERRL and EOMs intact bilaterally Neck full ROM, no lymphadenopathy and supple General: Negative for tenderness Chest Wall inspection of chest normal and palpation of chest normal Resp normal respiratory effort, no retractions and clear to auscultation bilaterally Cardio regular rate, regular rhythm and no murmurs GI non-tender, non-distended and no masses Auscultation: normoactive bowel sounds Palpation: soft Back/Spine no CVA tenderness General Back: Negative for CVA tenderness Cervical Spine: Negative for cervical spine tenderness Thoracic Spine / Upper Back: Negative for thoracic spinal tenderness Lumbar Spine / Lower Back: Negative for lumbar spinal tenderness Extremity normal to inspection, full ROM and no calf tenderness Neuro Neuro Narrative: Suffers from dementia. Tries to answer questions but cannot put sentences together. He is moving all 4 extremities. Sensorium / Orientation: alert Psych mental status grossly normal Psych Narrative: Has baseline dementia Skin Lesions: no lesions Rashes: no rashes MDM MDM MDM Narrative Medical decision making narrative: 80-year-old male with dementia and a CODE STATUS of DNR CC. He has presented here multiple times in the last month. He has had several CAT scans of his brain all of which were negative. And lab work which is unremarkable. I find no findings on his exam today of any acute injury. I discussed this with the [facility] facility and his son via phone. We will not do any further tests at this time. Lab Data Attestation: I reviewed the patient's lab results. Lab results narrative: From prior visits we did no testing today. Discharge Plan Triage Chief Complaint: Fall ED Provider: August Rothman Dx/Rx/DC Orders Clinical Impression: Fall, Dementia Instructions: ED Fall Prevention Prescriptions: No Action levothyroxine 50 mcg capsule 50 mcg capsule 50 mcg PO DAILY RF: 0 memantine 10 mg tablet 28 mg PO DAILY Qty: 180 RF: 0 aspirin 81 MG tablet 81 mg PO DAILY@0800 Qty: 90 RF: 0 multivitamin Tablet 1 tab PO DAILY RF: 0 sertraline 100 mg tablet 100 mg PO DAILY RF: 0 lorazepam [Ativan] 0.5 mg tablet 0.5 mg PO TID PRN (Reason: Anxiety) RF: 0 mirtazapine 7.5 mg tablet 7.5 mg PO DAILY RF: 0 quetiapine 50 mg tablet 50 mg PO DAILY RF: 0 atorvastatin 40 MG tablet 20 mg PO QHS RF: 0 Primary Care Provider: Melissa Knott Referrals: Melissa Knott MD [Primary Care Provider] - As Needed Activity Restrictions/Additional Instructions: Patient had a normal exam today except for his dementia. He had no acute signs of any head injury. He has had 3 CAT scans done in the last 4 weeks and lab work all of which was unremarkable. I spoke with the son via phone. We decided not to do any further work-up today. Disposition Disposition: Home, self care
--- NOTE | 2020-07-17 17:44 | NURSING ---
1705 CALLED [facility], LEONARDO IS WITHIN THE HOUR
== END 2020-07-17 18:37 | disposition home or self-care (01) ==
PROVIDERS: Emergency Provider Emergency Medicine; PCP Family Medicine
DX: F03.90 Unspecified dementia, unspecified severity, without behavioral disturbance, psychotic disturbance, mood disturbance, and anxiety (principal); Z66 Do not resuscitate; I25.10 Atherosclerotic heart disease of native coronary artery without angina pectoris; I10 Essential (primary) hypertension; E78.5 Hyperlipidemia, unspecified; E03.9 Hypothyroidism, unspecified; F32.9 Major depressive disorder, single episode, unspecified; W18.30XA Fall on same level, unspecified, initial encounter; Y93.9 Activity, unspecified; Y92.89 Other specified places as the place of occurrence of the external cause; Y99.9 Unspecified external cause status
CPT/HCPCS: 99283